=== PATIENT | female | born 1985 | race Caucasian/White ===

== ENCOUNTER 2018-04-16 21:52 | Inpatient (IN) | payer MEDICAID, OTHER ==
[~2018-04-16] VITALS: Ht 160 cm; Wt 131.6 kg
--- OUTSIDE RECORDS SUMMARY | 2018-04-16 21:59 | XMS REPORT | CCD ---
Author Author RUI PALMER Organization Unknown Address [address] [facility] [address] [place], [place] [address] Care Team Providers Care Patient Access Specialist Name Role Phone BENITO MOELLER, GALILEA Ashley GALILEA OLIVER MD Vital Signs Unknown or Not Available. Allergies Allergy Code Allergy Type Reaction Status Unknown Code - 0 0 Propensity to adverse reactions Active CODEINE 2670 Drug allergy Active Procedures Procedure Code Procedure Type Date TROPONIN-I ADV 137270979 SNOMED CT 12/08/2015 COMPREHENSIVE METABOLIC PANEL 499755632 SNOMED CT 2015 CBC W/ AUTO DIFF (RFLX MAN DIFF IF IND) 4118899 SNOMED CT 12/08/2015 ^CBC W/ MANUAL DIFF 35902344 SNOMED CT 12/08/2015 History of Immunizations Immunization Code Date DTP 1985 DTP 09/14/1986 DTP 10/31/1986 DTP 01/29/1987 DTP 02/02/1991 OPV 02 1985 OPV 02 1985 OPV 09/14/1986 OPV 01/29/1987 OPV 02/02/1991 MMR 10/31/1986 MMR 03 04/29/1993 Td (adult), adsorbed 10/04/2003 Hib, unspecified formulation 17 10/01/1987 Hep B, adolescent/high risk 42 11/21/1998 Hep B, adolescent/high risk 42 01/22/1999 Hep B, adolescent/high risk infant 42 05/21/1999 Problems Problem Code Start Date Resolved Date Status [id number] 12/03/2015 Active Results COMPREHENSIVE METABOLIC PANEL - Collect Date/Time: 12/08/2015 15:50 Test Name Code Test Result Test Units Test Ref Range GLUCOSE 2345-7 89 MG/DL L=70 H=100 SODIUM 2951-2 141 MEQ/L L=135 H=148 POTASSIUM 2823-3 3.7 MEQ/L L=3.5 H=5.3 CHLORIDE 2075-0 107 MEQ/L L=96 H=110 CO2 2028-9 23 MEQ/L L=22 H=29 BUN 3094-0 7 MG/DL L=8 H=22 CREATININE 2160-0 0.7 MG/DL L=0.6 H=1.6 SGOT/AST 1920-8 21 IU/L L=10 H=40 SGPT/ALT 1742-6 17 IU/L L=8 H=54 ALK PHOS 6768-6 143 IU/L L=35 H=115 TOTAL PROTEIN 2885-2 6.0 G/DL L=5.5 H=8.5 ALBUMIN 1751-7 3.1 G/DL L=3.1 H=5.4 TOTAL BILI 1975-2 0.2 MG/DL L=0.0 H=1.5 CALCIUM 39676-3 8.6 MG/DL L=8.2 H=10.6 AGE 30 yrs GFR NonAA 98 GFR AA 119 eGFR >60 N/A eGFR AA* >60 N/A CBC W/ AUTO DIFF (RFLX MAN DIFF IF IND) - Collect Date/Time: 12/08/2015 15:50 Test Name Code Test Result Test Units Test Ref Range WBC 18228-1 8.7 TH/CMM L=4.5 H=10.8 RBC 789-8 2.66 ML/CMM L=4.20 H=5.40 HGB 718-7 7.7 G/DL L=12.0 H=16.0 HCT 4544-3 24.8 % L=37.0 H=47.0 MCV 93 FL L=81 H=99 MCH 28.9 PG L=27.0 H=33.0 MCHC 31.0 G/DL L=31.0 H=36.0 RDW SD 54 FL L=36 H=50 RDW CV 16.0 % L=0.0 H=14.8 MPV 9.3 FL L=9.3 H=12.5 PLT 777-3 354 TH/CMM L=130 H=440 NRBC# 0.02 TH/CMM L=0.00 H=0.00 NRBC% 0.2 /100WBC L=0.0 H=2.0 %NEUT 62.6 % %LYMP 25.8 % %MONO 4.9 % %EOS 2.8 % %BASO 0.1 % #NEUT 5.46 TH/CMM L=2.10 H=8.20 #LYMP 2.25 TH/CMM L=0.90 H=5.20 #MONO 0.43 TH/CMM L=0.16 H=1.00 #EOS 0.24 TH/CMM L=0.00 H=0.80 #BASO 0.01 TH/CMM L=0.00 H=0.20 SEGS 64 % BANDS 3 % LYMPHS 28 % MONOS 1 % EOS 4 % MANUAL DIFF SEE BELOW N/A MACRO 1+ N/A HYPO 1+ N/A POLYCHROMASIA 1+ N/A TROPONIN-I ADV - Collect Date/Time: 12/08/2015 15:50 Test Name Code Test Result Test Units Test [place] [address]-5 <0.04 ng/mL L=0.04 H= 0.40 Active Medications Medication Code Dose Units Frequency Route Modification Start Date/Time Albuterol 0.09MG/Actuation Inhalation Aerosol Powder 058928 1-2 PUFF NEEDED EVERY 4 HR INHALATION 2015 13:14 Prescription Detail 1-2 PUFF INHALATION NEEDED EVERY 4 HR Claritin 24HR 10MG Oral Tablet 720059 10 MILLIGRAMS DAILY ORAL 12/05/2015 13:14 Prescription Detail 10 MILLIGRAMS ORAL DAILY Oral Tablet 0538619 1 EACH DAILY ORAL 12/05/2015 13:14 Prescription Detail 1 EACH ORAL DAILY Tylenol Extra Strength 500MG Oral Tablet 55158717489 500 MILLIGRAMS NEEDED ORAL 12/05/2015 13:14 Prescription Detail 500 MILLIGRAMS ORAL NEEDED HYDROcodone bitartrate-acetaminophen 7.5MG-325MG Oral Tablet 022765 1 TABLET NEEDED EVERY 8 HR BY MOUTH 12/05/2015 08:27 Prescription Detail 1 TABLET BY MOUTH NEEDED EVERY 8 HR Ferrous Sulfate 325MG Oral Tablet 832691 325 MILLIGRAMS BEFORE TWO MEALS BY MOUTH 12/05/2015 08:26 Prescription Detail 325 MILLIGRAMS BY MOUTH BEFORE TWO MEALS Ibuprofen 800MG Oral Tablet 428831 800 MILLIGRAMS NEEDED EVERY 8 HR BY MOUTH 12/05/2015 08:26 Prescription Detail 800 MILLIGRAMS BY MOUTH NEEDED EVERY 8 HR Medications Administered During Visit Unknown or Not Available. Encounters Encounter Diagnosis Diagnosis Code Start Date Anemia during the puerperium 425580959 12/08/2015 Social History Smoking Status Code Start Date End Date Former smoker 5360365 Patient Decision Aids Unknown or Not Available. Discharge Instructions You were admitted to [facility] on 12/08/2015 14:43 with a principal diagnosis of Anemia of the puerperium You had the following tests done: CBC W/ AUTO DIFF (RFLX MAN DIFF IF IND) COMPREHENSIVE METABOLIC PANEL TROPONIN-I ADV You were discharged from [facility] on 12/08/2015 17:13 Should you have any questions prior to discharge, please contact a member of your healthcare team. If you have left the hospital and have any questions, please contact your primary care physician. Chief Complaint and Reason For Visit Chief Complaint Date of Onset BLURRED VISION TIGHTNESS OF CHEST DIZZINESS Function Status Unknown or Not Available. Plan of Care Unknown or Not Available. Referral/Transition of Care Unknown or Not Available.
--- OUTSIDE RECORDS SUMMARY | 2018-04-16 21:59 | XMS REPORT | Continuity of Care Document ---
Author Author [facility] Organization [facility] Address [facility] [address] [address] Phone Unavailable Support Name Relationship Address Phone CHELA ALCOCER MD Caregiver [address] [place] [address] Unavailable YOLY CHAIDEZ Next Of Kin [address] [id number] Insurance Providers Payer Name Policy Number Subscriber Name Relationship [place] Other [id number] Ethan Clay A 18 Self / Same As Patient Advance Directives Directive Response Recorded Date/Time Do you have an Advanced Directive? No 08/15/03 11:06am Advance Directives No 01/15/14 10:24am Living Will No 01/15/14 10:24am Health Care Proxy No 05/02/15 7:12am Power of Anesthesia Director for Health Care No 01/15/14 10:24am Organ, Tissue, or Eye Donor No 01/15/14 10:24am Do you have a signed organ donor card? No 08/15/03 11:06am Chief Complaint and Reason for Visit Chief Complaint PROBLEM Reason for Visit [id number] Problems Active Problems Medical Problem Onset Date Status Ankle Sprain Unknown Acute Costochondritis Unknown Acute Nausea Unknown Acute Unknown Acute Rectal bleed Unknown Acute Threatened miscarriage Unknown Acute Medications Current Home Medications Medication Dose Units Route Directions Days/Qty Instructions Start Date Albuterol (Ventolin 17GM Hfa Inhaler*) 1 Puff 2 Puff Inhalation As Needed INHALE 2 PUFFS 03/17/14 Prenat Multivit/[place]/Iron/Folic Ac 1 Each 1 Udtab Oral Daily for 05/02/15 Acetaminophen/Hydrocodone Bitart (Lortab 7.5-325 Tab*) 1 Tab 1 Each Oral Every 6 Hrs As Needed For Pain for Pain 15 05/02/15 Past Home Medications Medication Directions Ordered Status Albuterol (Ventolin 17GM Hfa Inhaler*) 1 Puff Inh, 2 Puff Inhalation As Needed 09/08/13 Discontinued Metformin Hcl 500 Mg Tablet, 500 Mg Oral Twice A Day 09/08/13 Discontinued Gabapentin 300 Mg Capsule, 300 Mg Oral Three Times A Day 09/08/13 Discontinued Loratadine 10 Mg Capsule, 10 Mg Oral Daily 09/08/13 Discontinued Lurasidone Hcl 40 Mg Tablet, 40 Mg Oral Bedtime 09/08/13 Discontinued Naproxen 500 Mg Tablet, 500 Mg Oral Four Times Daily 09/08/13 Discontinued Indomethacin 50 Mg Capsule, 50 Mg Oral Twice A Day 12/23/13 Discontinued Omeprazole 20 Mg Capsule.dr, 20 Mg Oral Daily 12/23/13 Discontinued Tramadol Hcl 50 Mg Tablet, 50 Mg Oral Every 4-6 Hrs As Needed Pain 12/23/13 Discontinued Ibuprofen (Motrin 200 Mg Tab*) 200 Mg Tablet, 200 Mg Oral Every 4-6 Hours 08/19 Discontinued Oxycodone Hcl/Acetaminophen* 1 Tab Tablet, 1 Ea Oral Every 4-6 Hrs As Needed Pain 01/15/14 Discontinued Esomeprazole 20 Mg Cap 20 Mg Capsule.dr, 20 Mg Oral Daily 01/15/14 Discontinued Lurasidone Hcl 40 Mg Tablet, 40 Mg Oral Daily 01/15/14 Discontinued Oxycodone Hcl/Acetaminophen 1 Tab Tablet, 1-2 Tab Oral Every 6 Hrs As Needed For Pain 01/17/14 Discontinued Docusate Sodium 100 Mg Capsule, 100 Mg Oral Twice A Day 01/17/14 Discontinued Loratadine 10 Mg Tablet, 10 Mg Oral Daily 03/17/14 Discontinued [Unk. Antidepressant] , 1 Cap Oral Daily 03/17/14 Discontinued Omeprazole 20 Mg Capsule.dr, 20 Mg Oral Daily 03/17/14 Discontinued Acetaminophen/Hydrocodone Bitart (Lortab 5-325*) 1 Tab Tablet, 1 Each Oral Every 6 Hrs As Needed For Pain 03/31/14 Discontinued Oxycodone Hcl 5 Mg Tablet, 5 Mg Oral 01/15/15 Discontinued Ondansetron* 4 Mg/Tab Tab.rapdis, 4 Mg Oral Four Times Daily As Needed for Nausea 04/06/15 Discontinued Social History Social History Problem Response Recorded Date/Time Smoking Status Former smoker 01/15/2014 10:24am Tobacco Use Denies Use 05/02/2015 7:46am Alcohol Use none 05/02/2015 7:46am Sexual History Heterosexual 10/01/2012 11:37pm Query Response Start Date Stop Date Smoking Status Former smoker Hospital Discharge Instructions No hospital discharge instructions. Plan of Care Discharge Date 05/02/15 9:16am Disposition 01 HOME, RESIDENTIAL,ASSISTED LIVING Condition at Discharge Stable Instructions/Education Provided Threatened Miscarriage (ED) Prescriptions See Medication Section Additional Instructions/Education follow up with Dr. Jane your OBGYN in 1-2 days for further management Functional Status No functional status results. Allergies, Adverse Reactions, Alerts Allergen Type Severity Reaction Status Last Updated Codeine Allergy Unknown Active 03/31/14 SEASONAL ALLERGIES Allergy Unknown Active 03/31/14 PAPER TAPE Allergy Unknown Active 01/15/14 Immunizations Name Given Type Hx Diphtheria, Pertussis, Tetanus Vaccination Up To Date Historical Hx Influenza Vaccination No Historical Hx Pneumococcal Vaccination No Historical Hx Tetanus Toxoid Vaccination Yes Historical Vital Signs Acute Vital Signs Vital Response Date/Time Temperature (Fahrenheit) 98.1 degrees F (97.6 - 99.5) 04/06/2015 1:58pm Temperature Source Temporal Artery 04/06/2015 1:58pm Pulse Rate (adult) 98 bpm (60 - 90) 04/06/2015 2:40pm Respiratory Rate 22 bpm (12 - 24) 04/06/2015 2:40pm Blood Pressure 117/68 mm Hg 04/06/2015 2:40pm O2 Sat by Pulse Oximetry 99 % (90 - 100) 04/06/2015 2:40pm Oxygen Delivery Method 04/06/2015 2:40pm Pain Intensity 4 02/19/2015 5:37pm Pain Location Body Site Modifier 02/26/2015 2:35pm Results Pending Laboratory Results Test Name Collection Date/Time Procedures Procedure Status Date Provider(s) Complete ultrasound of gravid uterus less than 14 weeks Active 04/12/15 RONY JANE D.O. Transvaginal obstetrical ultrasound Active 04/12/15 RONY JANE D.O. Encounters Encounter Location Arrival/Admit Date Discharge/Depart Date Attending Provider Departed Emergency Room [place] 05/02/15 7:13am 05/02/15 9:16am CHELA ALCOCER MD Registered Clinic [place] 04/12/15 2:09pm RONY JANE D.O. Registered Clinic [place] 04/10/15 3:11pm JANE, RONY D.O. Departed Emergency Room [place] 04/06/15 1:47pm 04/06/15 2:43pm EUN BARRAGAN MD Discharged Recurring [place] 02/19/15 3:48pm 02/26/15 3:43pm Jesse Shaikh MD Recent Diagnosis
--- OUTSIDE RECORDS SUMMARY | 2018-04-16 21:59 | XMS REPORT | CCD ---
Author Author FIFI OROZCO Organization Unknown Address [address] [facility] [address] [place], [place] [address] Care Team Providers Care Featheredge Machine Operator Name Role Phone MYA URBINA MD Attphys Vital Signs Vital Sign Value Unit Date/Time Recent/Initial? Weight Measured 260 lbs 12/03/2015 05:23 Initial VS Height 64 in 12/03/2015 05:23 Initial VS BMI (Body Mass Index) 44.63 kg/m^2 12/03/2015 05:23 Initial VS BSA (Body Surface Area) 2.31 m^2 12/03/2015 05:23 Initial VS BP Systolic 114 mmHg 12/03/2015 05:23 Initial VS BP Diastolic 85 mmHg 12/03/2015 05:23 Initial VS Respiratory Rate 20 bpm 12/03/2015 05:23 Initial VS Heart Rate 96 bpm 12/03/2015 05:23 Initial VS Body Temperature 97.4 degrees 12/03/2015 05:23 Initial VS O2 % BldC Oximetry 98 % 12/03/2015 23:31 Initial VS BP Systolic 128 mmHg 12/05/2015 09:44 Most Recent VS BP Diastolic 87 mmHg 12/05/2015 09:44 Most Recent VS Respiratory Rate 18 bpm 12/05/2015 09:44 Most Recent VS Heart Rate 103 bpm 12/05/2015 09:44 Most Recent VS O2 % BldC Oximetry 100 % 12/05/2015 09:44 Most Recent VS Body Temperature 98.4 degrees 12/05/2015 09:44 Most Recent VS Allergies Allergy Code Allergy Type Reaction Status Unknown Code - 0 0 Propensity to adverse reactions Active CODEINE 2670 Drug allergy Active Procedures Procedure Code Procedure Type Date Delivery of Products of Conception, External Approach [id number] ICD -10 PCS 12/04/2015 Repair Perineum Muscle, Open Approach [id number] ICD-10 PCS 12/04/2015 Division of Female Perineum, External Approach [id number] ICD-10 PCS 12/03/2015 Introduction of Other Hormone into Peripheral Vein, Percutaneous Approach [id number] ICD-10 PCS 12/03/[address] 12/04/2015 ^CBC W/AUTO DIFF 8421534 SNOMED CT 11/27/2015 TYPE AND SCREEN 99503468 SNOMED CT 11/27/2015 CBC W/ AUTO DIFF (RFLX MAN DIFF IF IND) 5604272 SNOMED CT 11/27/2015 History of Immunizations Immunization Code Date DTP 1985 DTP 09/14/1986 DTP 10/31/1986 DTP 01/29/1987 DTP 02/02/1991 OPV 02 1985 OPV 1985 OPV 02 09/14/1986 OPV 02 01/29/1987 OPV 02 02/02/1991 MMR 03 10/31/1986 MMR 03 04/29/1993 Td (adult), adsorbed 09 10/04/2003 Hib, unspecified formulation 17 10/01/1987 Hep B, adolescent/high risk 42 11/21/1998 Hep B, adolescent/high risk 42 01/22/1999 Hep B, adolescent/high risk infant 42 05/21/1999 Problems Problem Code Start Date Resolved Date Status [id number] 12/03/2015 Active Results CBC W/ AUTO DIFF (RFLX MAN DIFF IF IND) - Collect Date/Time: 12/03/2015 05:40 Test Name Code Test Result Test Units Test Ref Range WBC 77270-5 9.8 TH/CMM L=4.5 H=10.8 RBC 789-8 3.85 ML/CMM L=4.20 H=5.40 HGB 718-7 11.0 G/DL L=12.0 H=16.0 HCT 4544-3 34.6 % L=37.0 H=47.0 MCV 90 FL L=81 H=99 MCH 28.6 PG L=27.0 H=33.0 MCHC 31.8 G/DL L=31.0 H=36.0 RDW SD 50 FL L=36 H=50 RDW CV 15.2 % L=0.0 H=14.8 MPV 10.8 FL L=9.3 H=12.5 PLT 777-3 255 TH/CMM L=130 H=440 NRBC# 0.00 TH/CMM L=0.00 H=0.00 NRBC% 0.0 /100WBC L=0.0 H=2.0 %NEUT 73.3 % %LYMP 19.8 % %MONO 5.6 % %EOS 0.7 % %BASO 0.0 % #NEUT 7.15 TH/CMM L=2.10 H=8.20 #LYMP 1.93 TH/CMM L=0.90 H=5.20 #MONO 0.55 TH/CMM L=0.16 H=1.00 #EOS 0.07 TH/CMM L=0.00 H=0.80 #BASO 0.00 TH/CMM L=0.00 H=0.20 MANUAL DIFF NOT IND N/A HEMOGRAM - Collect Date/Time: 12/04/2015 06:15 Test Name Code Test Result Test Units Test Ref Range WBC 68236-8 16.4 TH/CMM L=4.5 H=10.8 RBC 789-8 2.82 ML/CMM L=4.20 H=5.40 HGB 718-7 8.1 G/DL L=12.0 H=16.0 HCT 4544-3 25.6 % L=37.0 H=47.0 MCV 91 FL L=81 H=99 MCH 28.7 PG L=27.0 H=33.0 MCHC 31.6 G/DL L=31.0 H=36.0 RDW SD 51 FL L=36 H=50 RDW CV 15.4 % L=0.0 H=14.8 MPV 11.2 FL L=9.3 H=12.5 PLT 777-3 219 TH/CMM L=130 H=440 NRBC# 0.00 TH/CMM L=0.00 H=0.00 NRBC% 0.0 /100WBC L=0.0 H=2.0 TYPE AND SCREEN - Collect Date/Time: 12/03/2015 05:40 Test Name Code Test Result Test Units Test Ref Range ABO/Rh Type A Positive N/A Antibody Screen-Gel Negative N/A Active Medications Medication Code Dose Units Frequency Route Modification Start Date/Time Albuterol 0.09MG/Actuation Inhalation Aerosol Powder 94814796408 1-2 PUFF NEEDED EVERY 4 HR INHALATION 13:14 Prescription Detail 1-2 PUFF INHALATION NEEDED EVERY 4 HR Claritin 24HR 10MG Oral Tablet 728146 10 MILLIGRAMS DAILY ORAL 12/05/2015 13:14 Prescription Detail 10 MILLIGRAMS ORAL DAILY Oral Tablet 3098449 1 EACH DAILY ORAL 12/05/2015 13:14 Prescription Detail 1 EACH ORAL DAILY Tylenol Extra Strength 500MG Oral Tablet 43453920971 500 MILLIGRAMS NEEDED ORAL 12/05/2015 13:14 Prescription Detail 500 MILLIGRAMS ORAL NEEDED HYDROcodone bitartrate-acetaminophen 7.5MG-325MG Oral Tablet 801598 1 TABLET NEEDED EVERY 8 HR BY MOUTH 12/05/2015 08:27 Prescription Detail 1 TABLET BY MOUTH NEEDED EVERY 8 HR Ferrous Sulfate 325MG Oral Tablet 767209 325 MILLIGRAMS BEFORE TWO MEALS BY MOUTH 12/05/2015 08:26 Prescription Detail 325 MILLIGRAMS BY MOUTH BEFORE TWO MEALS Ibuprofen 800MG Oral Tablet 019553 800 MILLIGRAMS NEEDED EVERY 8 HR BY MOUTH 12/05/2015 08:26 Prescription Detail 800 MILLIGRAMS BY MOUTH NEEDED EVERY 8 HR Medications Administered During Visit Medication Dose Units Frequency Route Date/ Time of Last Dose IBUPROFEN (MOTRIN) TAB:800 MG 800 MG Q8H PO 12/05/2015 05:21 FERROUS SULFATE 325MG TABLET 325 MG ACBID PO 12/05/2015 08:46 NORCO [HYDROCODONE-APAP] TAB 7.5/325MG 1 TAB PRN PO 12/05/2015 08:46 Encounters Encounter Diagnosis Diagnosis Code Start Date Obesity complicating , third trimester [id number] 2015 Social History Smoking Status Code Start Date End Date Former smoker 6646175 Patient Decision Aids Patient Decision Aid PATIENT PORTAL ACCESS Discharge Instructions You were admitted to [facility] on 12/03/2015 04:46 with a principal diagnosis of Obesity complicating , third trimester You had the following procedures done: Delivery of Products of Conception, External Approach Repair Perineum Muscle, Open Approach Division of Female Perineum, External Approach Introduction of Other Hormone into Peripheral Vein, Percutaneous Approach You had the following tests done: CBC W/ AUTO DIFF (RFLX MAN DIFF IF IND) HEMOGRAM TYPE AND SCREEN You were discharged from [facility] on 12/05/2015 14:25 Should you have any questions prior to discharge, please contact a member of your healthcare team. If you have left the hospital and have any questions, please contact your primary care physician. DIET: REGULAR, Drink plenty of fluids, As tolerated, Increase fiber, Avoid alcohol Avoid caffeinated beverages, Eat high iron foods: grn vegs, red meats. HOME MEDICATION INSTRUCTIONS: Continue taking your vitamins. NON- Apply firm fitting bra OTF, Avoid stim breasts to supress milk prod. Apply ice packs if breasts engorged. ACTIVITIES: Refrain from smoking, Rest as possible. Limit walking,standing & stair climbing, No heavy lifting. HYGIENE: May shower, Use adriana-bottle with Betasept:. after each urine and BM until flow stops. Change pads with each urination or BM. BOWEL MOVEMENTS Stool softeners as needed, Avoid constipation. May take senokot, Milk of Magnesia. CONTROL DISCUSS AT YOUR 6 WEEK PP VISIT SEXUAL ACTIVITY Refrain from intercourse until pp exam. EXERCISES-VAGINAL DELIVERY May resume in 1-2 weeks, Start slowly and increase. [id number] Abdominal exercises in 3-4 wks , Start slowly and increase as roland. Post blues; Hormonal changes You may have emotional changes, You may be tearful. This shouldn't last more than 2-3 wks, Call physician if you are concerned. NOTIFY PHYSICIAN OF: Chills, fever, painful urination, foul- smelling vaginal discharge. bleeding more than a period, temperature is greater than 100.4. dizziness or fainting, Painful breasts, Red, hot and extremely HARD breasts. redness or drainage from incision, unrelieved pain with medication. nausea or vomiting, cough or shortness of breath. cramping or swelling of legs. RELEVANT CONTACT INFORMATION: Dr. Mya Urbina: [phone]. FOLLOW-UP: Make appt to see __CIARA in 6wks. Call office for an appointment. [phone] TREATMENTS: stool softeners and hemmorrhoid cream. SPECIAL INSTRUCTIONS: is not recommended for 3 mnths. do not kiss/nuzzle NB til lesions clear. PATIENT PORTAL EDUCATION INFO PROVIDED? YES, patient verbalized understanding. PATIENT PORTAL DEMONSTRATION PERFORMED? YES, patient verbalized understanding. DISCHARGED TO: Home. MODE OF TRANSPORTATION: Ambulatory. ACCOMPANIED BY: . PAIN MANAGEMENT Non drug pain control methods, When to contact physician. PERSONAL EFFECTS/VALUABLES SENT HOME: Yes. IMPORTANT: INSURE YOUR BABY! Provided info on need to insure baby!. PATIENT/FAMILY UNDERSTANDS INSTRUCTIONS: Verbalizes. INSTRUCTIONS GIVEN BY (TYPE IN NAME AND DATE) CHRIS ÁLVAREZ SMOKING CESSATION: Smoking and second hand smoke is harmful, to your health. Smoking has been linked to cancer, cardiac disease, COPD, and asthma. For more information you can call:, 4-652-POW-STOP, or 4-228-[email or web address]. A pamphlet on smoking was given to you, at admission. Chief Complaint and Reason For Visit Chief Complaint Date of Onset INDUCTION Function Status Unknown or Not Available. Plan of Care Unknown or Not Available. Referral/Transition of Care Unknown or Not Available.
--- OUTSIDE RECORDS SUMMARY | 2018-04-16 21:59 | XMS REPORT | Continuity of Care Document ---
Author Author [facility] Organization [facility] Address [facility] [address] [place] [address] Phone Unavailable Support Name Relationship Address Phone EUN BARRAGAN MD Caregiver [address] [place] [address] Unavailable YOLY CHAIDEZ Next Of Kin [address] [address] Insurance Providers Payer Name Policy Number Subscriber Name Relationship [employer] [facility] [id number] Ethan Clay 18 Self / Same As Patient Advance Directives Directive Response Recorded Date/Time Do you have an Advanced Directive? No 08/15/03 11:06am Advance Directives No 01/15/14 10:24am Living Will No 01/15/14 10:24am Health Care Proxy No 04/06/15 1:46pm Power of Head Start Director for Health Care No 01/15/14 10:24am Organ, Tissue, or Eye Donor No 01/15/14 10:24am Do you have a signed organ donor card? No 08/15/03 11:06am Chief Complaint and Reason for Visit Chief Complaint NAUSEA Reason for Visit Nausea Problems Active Problems Medical Problem Onset Date Status Ankle Sprain Unknown Acute Costochondritis Unknown Acute Nausea Unknown Acute Unknown Acute Rectal bleed Unknown Acute Medications Current Home Medications Medication Dose Units Route Directions Days/Qty Instructions Start Date Loratadine 10 Mg 10 Mg Oral Daily 03/17/14 Albuterol (Ventolin 17GM Hfa Inhaler*) 1 Puff 2 Puff Inhalation As Needed INHALE 2 PUFFS 03/17/14 [Unk. Antidepressant] 1 Cap Oral Daily 03/17/14 Oxycodone Hcl 5 Mg 5 Mg Oral 01/15/15 Ondansetron* 4 Mg/Tab 4 Mg Oral Four Times Daily As Needed for Nausea 20 04/06/15 Past Home Medications Medication Directions Ordered Status [...] A Day 12/23/13 Discontinued Omeprazole 20 Mg Capsule., 20 Mg Oral Daily 12/23/13 Discontinued Tramadol Hcl 50 Mg Tablet, 50 Mg Oral Every 4-6 Hrs As Needed Pain 12/23/13 Discontinued Ibuprofen (Motrin 200 Mg Tab*) 200 Mg Tablet, 200 Mg Oral Every 4-6 Hours 08/19 Discontinued Oxycodone Hcl/Acetaminophen* 1 Tab Tablet, 1 Ea Oral Every 4-6 Hrs As Needed Pain 01/15/14 Discontinued Esomeprazole 20 Mg Cap 20 Mg Capsule., 20 Mg Oral Daily 01/15/14 Discontinued Lurasidone Hcl 40 Mg Tablet, 40 Mg Oral Daily 01/15/14 Discontinued Oxycodone Hcl/Acetaminophen 1 Tab Tablet, 1-2 Tab Oral Every 6 Hrs As Needed For Pain 01/17/14 Discontinued Docusate Sodium 100 Mg Capsule, 100 Mg Oral Twice A Day 01/17/14 Discontinued Omeprazole 20 Mg Capsule., 20 Mg Oral Daily 03/17/14 Discontinued Acetaminophen/Hydrocodone Bitart (Lortab 5-325*) 1 Tab Tablet, 1 Each Oral Every 6 Hrs As Needed For Pain 03/31/14 Discontinued Social History Social History Problem Response Recorded Date/Time Smoking Status Former smoker 01/15/2014 10:24am Alcohol Use none 04/06/2015 2:38pm Sexual History Heterosexual 10/01/2012 11:37pm Query Response Start Date Stop Date Smoking Status Former smoker Hospital Discharge Instructions No hospital discharge instructions. Plan of Care Discharge Date 04/06/15 2:43pm Condition at Discharge Stable Instructions/Education Provided Vitamins (By mouth) Prescriptions See Medication Section Referrals RONY JANE D.O. - Additional Instructions/Education Return to ER if needed, for problems or worsening symptoms Call [facility] to start your care, with Dr. Jane You should start taking one vitamin daily. Functional Status Query Response Date Recorded Patient Behavior Cooperative Appropriate April 06, 2015 2:00pm Allergies, Adverse Reactions, Alerts Allergen Type Severity [...] Pain Location Body Site Modifier 02/26/2015 2:35pm Pain Description Throbbing 01/15/2015 3:57pm Pain Duration 15-30 Minutes 01/15/2015 1:31pm Height 5 ft 4 in Weight 250 lb Body Mass Index 42.0 kg/m^2 Results Pending Laboratory Results Test Name Collection Date/Time Procedures No known history of procedures. Encounters Encounter Location Arrival/Admit Date Discharge/Depart Date Attending Provider Departed Emergency Room [place] 04/06/15 1:47pm 04/06/15 2:43pm EUN BARRAGAN MD Registered Recurring [place] 02/19/15 3:48pm Jesse Shaikh MD Departed Emergency Room [place] 01/15/15 12:40pm 01/15/15 3:57pm YU ALDANA DO Recent Diagnosis
--- OUTSIDE RECORDS SUMMARY | 2018-04-16 21:59 | XMS REPORT | CCD ---
Author Author [facility] Unknown Address [address] [facility] [address] [place] [address] Care Team Providers Care Rotary Engine Assembler Name Role Phone PETERSON PÉREZ DO Bette Attphys Allergies Allergy Code Allergy Type Reaction Status Unknown Code - 0 0 Propensity to adverse reactions Active CODEINE 8428 Drug allergy Active Active Medications Unknown or Not Available. Problems Problem Code Start Date Resolved Date Status [id number] 12/03/2015 Active Procedures Procedure Code Procedure Type Date Excision of ganglion, wrist; recurrent 81830 CPT 2016 PATHOLOGY ORDER [id number] SNOMED CT 01/14/2017 TEST URINE [id number] SNOMED CT 01/14/2017 Results TEST URINE - Collect Date/Time: 01/14/2017 06:40 Test Name Code Test Result Test Units Test Ref Range TEST UR 2106-3 NEGATIVE N/A Function Status Unknown or Not Available. History of Immunizations Immunization Code Date DTP 1985 DTP 01 09/14/1986 DTP 01 10/31/1986 DTP 01 01/29/1987 DTP 01 02/02/1991 OPV 02 1985 OPV 02 1985 OPV 02 09/14/1986 OPV 02 01/29/1987 OPV 02 02/02/1991 MMR 03 10/31/1986 MMR 03 04/29/1993 Td (adult), adsorbed 09 10/04/2003 Hib, unspecified formulation 17 10/01/1987 Hep B, adolescent/high risk 42 11/21/1998 Hep B, adolescent/high risk 42 01/22/1999 Hep B, adolescent/high risk 42 05/21/1999 Plan of Treatment Unknown or Not Available. Social History Smoking Status Code Start Date End Date Former smoker [id number] Vital Signs Vital Sign Value Unit Date/Time Recent/Initial? BMI (Body Mass Index) 46.34 kg/m2 01/13/2017 11:33 Initial VS Weight Measured 270 [lb_av] 01/13/2017 11:33 Initial VS Height 64 [in_i] 01/13/2017 11:33 Initial VS BSA (Body Surface Area) 2.35 m2 01/13/2017 11:33 Initial VS Function Status Unknown or Not Available. Goals Unknown or Not Available. ASSESSMENTS Unknown or Not Available. Health Concerns Section Unknown or Not Available.
--- OUTSIDE RECORDS SUMMARY | 2018-04-16 21:59 | XMS REPORT | CCD ---
Author [facility] Organization Unknown Address [address] [facility] [address] [place], [place] [id number] Care Team Providers Care Nutrition Helper Name Role Phone HOPE RAMIREZ DO Attphys RAMIREZHOPE DO Prisurg Vital Signs Unknown or Not Available. Allergies Allergy Code Allergy Type Reaction Status Unknown Code - 0 0 Propensity to adverse reactions Active CODEINE 1577 Drug allergy Active Procedures Unknown or Not Available. History of Immunizations Immunization Code Date DTP 1985 DTP 09/14/1986 DTP 10/31/1986 DTP 01/29/1987 DTP 02/02/1991 OPV 02 1985 OPV 1985 OPV 02 09/14/1986 OPV 01/29/1987 OPV 02 02/02/1991 MMR 03 10/31/1986 MMR 03 04/29/1993 Td (adult), adsorbed 09 10/04/2003 Hib, unspecified formulation 17 10/01/1987 Hep B, adolescent/high risk infant 42 11/21/1998 Hep B, adolescent/high risk 42 01/22/1999 Hep B, adolescent/high risk infant 42 05/21/1999 Problems Unknown or Not Available. Results Unknown or Not Available. Active Medications Unknown or Not Available. Medications Administered During Visit Unknown or Not Available. Encounters Encounter Diagnosis Diagnosis Code Start Date HEADACHE 7840 05/18/2015 Social History Smoking Status Code Start Date End Date Former smoker [id number] Patient Decision Aids Unknown or Not Available. Discharge Instructions You were admitted to [facility] on 05/18/2015 with a principal diagnosis of HEADACHE. You were discharged from [facility] on 05/18/2015. Should you have any questions prior to discharge, please contact a member of your healthcare team. If you have left the hospital and have any questions, please contact your primary care physician. Chief Complaint and Reason For Visit Chief Complaint Date of Onset HEADACHE Function Status Unknown or Not Available. Plan of Care Unknown or Not Available. Referral/Transition of Care Unknown or Not Available.
--- OUTSIDE RECORDS SUMMARY | 2018-04-16 22:00 | XMS REPORT | Continuity of Care Document ---
Author Author [facility] Organization [facility] Address [facility] [address] [place] [address] Phone Unavailable Support Name Relationship Address Phone NIRMALA JURADO D.O. Caregiver [address] [place], [place] [address] YOLY CHAIDEZ Next Of Kin [address] [place] [address] Insurance Providers Payer Name Policy Number Subscriber Name Relationship [employer] [id number] Ethan Chaidez 18 Self / Same As Patient Advance Directives Directive Response Recorded Date/Time Do you have an Advanced Directive? No 08/15/03 11:06am Advance Directives No 07/24/15 3:59pm Living Will No 07/24/15 3:59pm Health Care Proxy No 09/28/15 3:13pm Power of Urban Redevelopment Specialist for Health Care No 07/24/15 3:59pm Organ, Tissue, or Eye Donor No 07/24/15 3:59pm Do you have a signed organ donor card? No 07/24/15 3:59pm Problems Active Problems Medical Problem Onset Date Status Ankle Sprain Unknown Acute Costochondritis Unknown Acute Nausea Unknown Acute Unknown Acute Rectal bleed Unknown Acute Threatened miscarriage Unknown Acute Medications Current Home Medications Medication Dose Units Route Directions Days/Qty Instructions Start Date Albuterol (Ventolin 17GM Hfa Inhaler*) 1 Puff 2 Puff Inhalation As Needed INHALE 2 PUFFS 03/17/14 Prenat Multivit/[place]/Iron/Folic Ac 1 Each 1 Udtab Oral Daily for 05/02/15 Past Home Medications Medication Directions Ordered [...] Daily As Needed for Nausea 04/06/15 Discontinued Acetaminophen/Hydrocodone Bitart (Lortab 7.5-325 Tab*) 1 Tab Tablet, 1 Each Oral Every 6 Hrs As Needed For Pain for Pain 05/02/15 Discontinued Social History Social History Problem Response Recorded Date/Time Smoking Status Former smoker 01/15/2014 10:24am Tobacco Use Denies Use 05/02/2015 7:46am Sexual History Heterosexual 10/01/2012 11:37pm Query Response Start Date Stop Date Smoking Status Former smoker Hospital Discharge Instructions No hospital discharge instructions. Plan of Care Discharge Date 09/28/15 6:40pm Prescriptions See Medication Section Functional Status No functional status results. Allergies, Adverse Reactions, Alerts Allergen Type Severity Reaction Status Last Updated Codeine Allergy Unknown Active 09/11/15 SEASONAL ALLERGIES Allergy Unknown Active 09/11/15 PAPER TAPE Allergy Unknown Active 01/15/14 Immunizations Name Given Type Hx Diphtheria, Pertussis, Tetanus Vaccination 2012 Historical Hx Influenza Vaccination No Historical Hx Pneumococcal Vaccination No Historical Hx Tetanus Toxoid Vaccination Yes Historical Vital Signs Acute Vital Signs Vital Response Date/Time Temperature (Fahrenheit) 98.4 degrees F (97.6 - 99.5) 09/28/2015 3:59pm Temperature Source Temporal Artery 09/28/2015 3:59pm Pulse Rate (adult) 96 bpm (60 - 90) 09/28/2015 3:59pm Respiratory Rate 20 bpm (12 - 24) 09/28/2015 3:59pm Blood Pressure 126/62 mm Hg 09/28/2015 3:59pm Height 5 ft 4 in Weight 258 lb Body Mass Index 44.3 kg/m^2 Results Laboratory Results Test Name Result Units Flags Reference Collection Date/Time Result Date/ Time Comments White Blood Count 6.8 K/uL 4.8-10.8 07/05/2015 8:39am 07/05/2015 9: 25am Red Blood Count 3.95 M/uL L 4.20-5.40 07/05/2015 8:39am 07/05/2015 9: 25am Hemoglobin 12.0 gm/dL 12.0-16.0 07/05/2015 8:39am 07/05/2015 9:25am Hematocrit 35.2 % L 37.0-47.0 07/05/2015 8:39am 07/05/2015 9:25am Mean Corpuscular Volume 89.0 fL 81.0-99.0 07/05/2015 8:39am 07/05/2015 9:25am Mean Corpuscular Hemoglobin 30.3 pg 27.0-31.0 07/05/2015 8:39am 2014 9:25am Mean Corpuscular Hemoglobin Concent 34.0 g/dL 30.0-37.0 07/05/2015 8: 39am 07/05/2015 9:25am Red Cell Distribution Width 14.3 % 11.5-14.5 07/05/2015 8:39am 2014 9:25am Platelet Count 283 K/uL 130-400 07/05/2015 8:39am 07/05/2015 9:25am Mean Platelet Volume 8.3 fL 7.4-10.4 07/05/2015 8:39am 07/05/2015 9: 25am Neutrophils (%) (Auto) 76.1 % H 42.2-75.2 07/05/2015 8:39am 07/05/2015 9 :25am Lymphocytes (%) (Auto) 19.4 % L 20.5-51.1 07/05/2015 8:39am 07/05/2015 9 :25am Monocytes (%) (Auto) 3.9 % 1.7-9.3 07/05/2015 8:39am 07/05/2015 9:25am Eosinophils (%) (Auto) 0.7 % 0-3 07/05/2015 8:39am 07/05/2015 9:25am Basophils (%) (Auto) 0.1 % 0.0-1.0 07/05/2015 8:39am 07/05/2015 9:25am Neutrophils # (Auto) 5.2 K/uL 2.0-6.9 07/05/2015 8:39am 07/05/2015 9: 25am Lymphocytes # (Auto) 1.3 K/uL 1.2-3.4 07/05/2015 8:39am 07/05/2015 9: 25am Monocytes # (Auto) 0.3 K/uL 0.1-0.6 07/05/2015 8:39am 07/05/2015 9: 25am Eosinophils # (Auto) 0.1 K/uL 0.0-0.7 07/05/2015 8:39am 07/05/2015 9: 25am Basophils # (Auto) 0.0 K/uL 0.0-0.2 07/05/2015 8:39am 07/05/2015 9: 25am Fasting Glucose 96 MG/DL 70-110 07/05/2015 8:39am 07/05/2015 10:04am NO URINE FASTING GLUCOSE RESULT; PATIENT UNABLE TO VOID AT THIS TIME. Glucose 1/2 Hour 149 MG/DL 110-170 07/05/2015 8:39am 07/05/2015 10: 45am Glucose 1 Hour 151 MG/DL 120-170 07/05/2015 8:39am 07/05/2015 11:08am Glucose 2 Hour 131 MG/DL H 70-120 07/05/2015 8:39am 07/05/2015 11:55am Glucose 3 Hour 118 MG/DL 70-120 07/05/2015 8:39am 07/05/2015 1:14pm Urine Color YELLOW YELLOW 07/05/2015 8:39am 07/05/2015 12:18pm Urine Appearance SL CLOUDY H CLEAR 07/05/2015 8:39am 07/05/2015 12: 18pm Urine Glucose (UA) NEGATIVE mg/dL NEGATIVE 07/05/2015 8:39am 2014 12:18pm Urine Bilirubin NEGATIVE NEGATIVE 07/05/2015 8:39am 07/05/2015 12: 18pm Urine Ketones NEGATIVE mg/dL NEGATIVE 07/05/2015 8:39am 07/05/2015 12: 18pm Urine Specific [place] 1.020 1.010-1.025 07/05/2015 8:39am 2014 12:18pm Urine Occult Blood NEGATIVE NEGATIVE 07/05/2015 8:39am 07/05/2015 12: 18pm Urine pH 6.0 5.0-8.0 07/05/2015 8:39am 07/05/2015 12:18pm Urine Protein NEGATIVE mg/dL NEGATIVE 07/05/2015 8:39am 07/05/2015 12: 18pm Urine Urobilinogen 0.2 mg/dL E.U./dL 0.2-1.0 07/05/2015 8:39am 2014 12:18pm Urine Nitrate NEGATIVE NEGATIVE 07/05/2015 8:39am 07/05/2015 12:18pm Urine Leukocyte Esterase TRACE H NEGATIVE 07/05/2015 8:39am 2014 12:18pm Urine RBC NEGATIVE /hpf 0 07/05/2015 8:39am 07/05/2015 12:18pm Urine WBC 5-9 /hpf H 0-4 07/05/2015 8:39am 07/05/2015 12:18pm Urine Squamous Epithelial Cells 10-12 /hpf 0-1 07/05/2015 8:39am 2014 12:18pm Urine Bacteria 2+ H NEGATIVE 07/05/2015 8:39am 07/05/2015 12:18pm Hepatitis B Surface Antigen Negative Negative 07/05/2015 8:39am 07/08 8:43am Performed at: [address] [id number] Air Valve Repairer: VERONICA Elias MD, Phone: [phone] HIV-1 Antibody <1.00 <1.00 07/05/2015 8:39am 07/08/2015 8:43am Index Value: Specimen reactivity relative to the negative cutoff. HIV 1/O/2 ABS, QUAL Non Reactive Non Reactive 07/05/2015 8:39am 07/08 8:43am Rubella IgG Antibody 6.01 index Immune >0.99 07/05/2015 8:39am 2014 8:17am Non-immune <0.90 Equivocal 0.90 - 0.99 Immune >0.99 Performed at: [address] [id number] Air Valve Repairer: VERONICA Elias MD, Phone: [phone] Pending Laboratory Results Test Name Collection Date/Time Procedures Procedure Status Date Provider(s) Follow-up obstetrical ultrasound Active 08/28/15 NIRMALA JURADO D.O. Encounters Encounter Location Arrival/Admit Date Discharge/Depart Date Attending Provider Departed [facility] 09/28/15 3:14pm 09/28/15 6:40pm NIRMALA JURADO D.O. Registered [facility] 09/11/15 11:55am NIRMALA JURADO D.O. Registered [facility] 08/28/15 1:30pm NIRMALA JURADO D.O. Registered [facility] 08/27/15 3:28pm NIRMALA JURADO D.O. Departed [facility] 07/24/15 4:48pm 07/24/15 9:14pm ANUM SOLIS M.D. Registered [facility] 07/05/15 8:18am ADRIANE URBINA
--- OUTSIDE RECORDS SUMMARY | 2018-04-16 22:00 | XMS REPORT | Continuity of Care Document ---
Author Author [facility] Organization [facility] Address [facility] [address] [place] [address] Phone Unavailable Support Name Relationship Address Phone RONY JANE D.O. Caregiver [address] [facility] [address] [place] [address] YOLY CHAIDEZ Next Of Kin [address] [address] Insurance Providers Payer Name Policy Number Subscriber Name Relationship [place] Other [id number] Ethan Clay A 18 Self / Same As Patient Advance Directives Directive Response Recorded Date/Time Do you have an Advanced Directive? No 08/15/03 11:06am Advance Directives No 01/15/14 10:24am Living Will No 01/15/14 10:24am Health Care Proxy No 04/12/15 2:03pm Power of Sustainability Manager for Health Care No 01/15/14 10:24am Organ, Tissue, or Eye Donor No 01/15/14 10:24am Do you have a signed organ donor card? No 08/15/03 11:06am Problems Active Problems Medical Problem Onset Date [...] Date/Time Smoking Status Former smoker 01/15/2014 10:24am Sexual History Heterosexual 10/01/2012 11:37pm Query Response Start Date Stop Date Smoking Status Former smoker Hospital Discharge Instructions Current inpatient/outpatient. Discharge instructions are currently unavailable. Plan of Care Prescriptions Functional Status No functional status results. Allergies, [...] Location Arrival/Admit Date Discharge/Depart Date Attending Provider Registered [facility] [place] 04/12/15 2:09pm RONY JANE D.O. Registered [facility] [place] 04/10/15 3:11pm RONY JANE D.O. Departed Emergency Room [place] 04/06/15 1:47pm 04/06/15 2:43pm EUN BARRAGAN MD Discharged Recurring [place] 02/19/15 3:48pm 02/26/15 3:43pm Jesse Shaikh MD
--- OUTSIDE RECORDS SUMMARY | 2018-04-16 22:00 | XMS REPORT | Continuity of Care Document ---
Author Author [facility] Organization [facility] Address [facility] [address] [place] [address] Phone Unavailable Support Name Relationship Address Phone ANUM SOLIS M.D. Caregiver [address] [place] [address] YOLY CHAIDEZ Next Of Kin [address] [place] [address] Insurance Providers Payer Name Policy Number Subscriber Name Relationship [employer] [facility] [id number] Ethan Clay 18 Self / Same As Patient Advance Directives Directive Response Recorded Date/Time Do you have an Advanced Directive? No 08/15/03 11:06am Advance Directives No 07/24/15 3:59pm Living Will No 07/24/15 3:59pm Health Care Proxy No 07/24/15 3:59pm Power of [place] Fisher for Health Care No 07/24/15 3:59pm Organ, [...] As Needed INHALE 2 PUFFS 03/17/14 Prenat Multivit/Banner/Iron/Folic Ac 1 Each 1 Udtab Oral Daily [...] Oral Daily 03/17/14 Discontinued Omeprazole 20 Mg Capsule., 20 Mg [...] Smoking Status Former smoker Hospital Discharge Instructions Discharge Instructions Nursing Instructions Flu Vaccine Received this Visit: No Pneumonia Vaccine Received this Visit: No Education #1 Topic: PAIN MANAGEMENT Methods: Discussion Response: Verbalize understanding Recipient: Patient, Family Note: REST, APPLY WARM PACK, AND ICE Patient specific education materials provided?: No Patient Request Electronic Discharge Instructions: No Patient Received Electronic Discharge Instructions: No Patient Health Summary printed/downloaded for the patient?: No Left Against Medical Advice: N/A Plan of Care Discharge Date 07/24/15 9:14pm Prescriptions See Medication Section Functional Status No functional status results. Allergies, Adverse Reactions, Alerts Allergen Type Severity Reaction Status Last Updated Codeine Allergy Unknown Active 03/31/14 SEASONAL ALLERGIES Allergy Unknown Active 03/31/14 PAPER TAPE Allergy Unknown Active 01/15/14 Immunizations Name Given Type Hx Diphtheria, Pertussis, Tetanus Vaccination 2013 Historical Hx Influenza Vaccination N refused Historical Hx Pneumococcal Vaccination No Historical Hx Tetanus Toxoid Vaccination Yes Historical Vital Signs Acute Vital Signs Vital Response Date/Time Temperature (Fahrenheit) 98.0 degrees F (97.6 - 99.5) 05/02/2015 9:15am Temperature Source Temporal Artery 05/02/2015 9:15am Pulse Rate (adult) 78 bpm (60 - 90) 05/02/2015 9:15am Respiratory Rate 20 bpm (12 - 24) 05/02/2015 9:15am Blood Pressure 124/73 mm Hg 05/02/2015 9:15am O2 Sat by Pulse Oximetry 99 % (90 - 100) 05/02/2015 9:15am Oxygen Delivery Method 05/02/2015 9:15am Pain Intensity 2 05/02/2015 7:18am Pain Location Body Site Modifier 05/02/2015 7:18am Pain Description 05/02/2015 7:18am Height 5 ft 4 in Weight 252 lb Body Mass Index 43.3 kg/m^2 Results Laboratory Results Test Name Result Units Flags Reference Collection Date/Time Result Date/ Time Comments White Blood Count 7.9 K/uL 4.8-10.8 05/02/2015 7:57am 05/02/2015 8: 18am Red Blood Count 4.18 M/uL L 4.20-5.40 05/02/2015 7:57am 05/02/2015 8: 18am Hemoglobin 12.6 gm/dL 12.0-16.0 05/02/2015 7:57am 05/02/2015 8:18am Hematocrit 38.1 % 37.0-47.0 05/02/2015 7:am 05/02/2015 8:18am Mean Corpuscular Volume 91.0 fL 81.0-99.0 05/02/2015 7:5705/02/2015 8:18am Mean Corpuscular Hemoglobin 30.1 pg 27.0-31.0 05/02/2015 7:572014 8:18am Mean Corpuscular Hemoglobin Concent 33.0 g/dL 30.0-37.0 05/02/2015 7: 57am 05/02/2015 8:18am Red Cell Distribution Width 14.4 % 11.5-14.5 05/02/2015 7:2014 8:18am Platelet Count 267 K/uL 130-400 05/02/2015 7:05/02/2015 8:18am Mean Platelet Volume 7.6 fL 7.4-10.4 05/02/2015 7:05/02/2015 8: 18am Neutrophils (%) (Auto) 73.4 % 42.2-75.2 05/02/2015 7:am 05/02/2015 8: 18am Lymphocytes (%) (Auto) 20.9 % 20.5-51.1 05/02/2015 7:am 05/02/2015 8: 18am Monocytes (%) (Auto) 3.8 % 1.7-9.3 05/02/2015 7:05/02/2015 8:18am Eosinophils (%) (Auto) 1.4 % 0-3 05/02/2015 7:57am 05/02/2015 8:18am Basophils (%) (Auto) 0.5 % 0.0-1.0 05/02/2015 7:05/02/2015 8:18am Neutrophils # (Auto) 5.8 K/uL 2.0-6.9 05/02/2015 7:am 05/02/2015 8: 18am Lymphocytes # (Auto) 1.7 K/uL 1.2-3.4 05/02/2015 7:57am 05/02/2015 8: 18am Monocytes # (Auto) 0.3 K/uL 0.1-0.6 05/02/2015 7:57am 05/02/2015 8: 18am Eosinophils # (Auto) 0.1 K/uL 0.0-0.7 05/02/2015 7:57am 05/02/2015 8: 18am Basophils # (Auto) 0.0 K/uL 0.0-0.2 05/02/2015 7:57am 05/02/2015 8: 18am Random Glucose 92 mg/dL 70-110 05/02/2015 7:57am 05/02/2015 8:36am Blood Urea Nitrogen 7 mg/dL 7-18 05/02/2015 7:57am 05/02/2015 8:36am Creatinine 0.7 mg/dL 0.6-1.0 05/02/2015 7:57am 05/02/2015 8:36am Sodium Level 136 mEq/L 136-145 05/02/2015 7:57am 05/02/2015 8:36am Potassium Level 3.6 mEq/L 3.5-5.0 05/02/2015 7:57am 05/02/2015 8:36am Chloride Level 102 mEq/L 98-107 05/02/2015 7:57am 05/02/2015 8:36am Carbon Dioxide Level 23.1 mEq/L 21-32 05/02/2015 7:57am 05/02/2015 8: 36am Calcium Level 8.4 mg/dL L 8.8-10.5 05/02/2015 7:57am 05/02/2015 8:36am HCG Beta Subunit [id number] IU/L 05/02/2015 7:57am 05/02/2015 8:50am 9- 130 mIU/ml INDICATES 3-4 WEEKS POST LMP 75-2,600 mIU/ml INDICATES 4-5 WEEKS POST LMP 850-20,800 mIU/ml INDICATES 5-6 WEEKS POST LMP 4,000-100,200 mIU/ml INDICATES 6-7 WEEKS POST LMP 11,500-289,000 mIU/ml INDICATES 7-12 WEEKS POST LMP 18,000-137,000 mIU/ml INDICATES 12-16 WEEKS POST LMP 1,400-53,000 mIU/ml INDICATES 16-29 WEEKS POST LMP (2ND TRIMESTER) 940-60,000 mIU/ML INDICATES 29-41 WEEKS (3RD TRIMESTER) Glomerular Filtration Rate Calc 105.1 mL/min 05/02/2015 7:57am 2014 8:36am Pending Laboratory Results Test Name Collection Date/Time Procedures No known history of procedures. Encounters Encounter Location Arrival/Admit Date Discharge/Depart Date Attending Provider Departed [facility] [place] 07/24/15 4:48pm 07/24/15 9:14pm ANUM SOLIS M.D. Registered [facility] [place] 07/05/15 8:18am ADRIANE URBINA Departed Emergency Room [place] 05/02/15 7:13am 05/02/15 9:16am CHELA ALCOCER MD
--- OUTSIDE RECORDS SUMMARY | 2018-04-16 22:00 | XMS REPORT | Continuity of Care Document ---
Author Author [facility] Organization [facility] Address [facility] [address] [place] [address] Phone Unavailable Support Name Relationship Address Phone BRYAN ADAMS/PANKAJ SIMS Caregiver [address] [place] [address] JOVAN YU Power DO Caregiver Unknown KAYLYNNYOLY Next Of Kin [address] [address] Insurance Providers Payer Name Policy Number Subscriber Name Relationship [employer] [facility] [id number] Ethan Clay 18 Self / Same As Patient Advance Directives Directive Response Recorded Date/Time Do you have an Advanced Directive? No 08/15/03 11:06am Advance Directives No 01/15/14 10:24am Living Will No 01/15/14 10:24am Health Care Proxy No 01/15/15 12:45pm Power of Intern Architect for Health Care No 01/15/14 10:24am Organ, Tissue, or Eye Donor No 01/15/14 10:24am Do you have a signed organ donor card? No 08/15/03 11:06am Problems Medical Problems Problem Onset Date Status Costochondritis Unknown Active Ankle Sprain Unknown Active Rectal bleed Unknown Active Medications Medication Dose Route Sig Days/Qty Instructions Order Date Discontinued Date Status Albuterol (VENTOLIN 17GM HFA Inhaler*) 2 Puff IH NEEDED 09/08/13 02/21/14 Discontinued Metformin HCl 500 Mg PO TWICE A DAY 09/08/13 12/23/13 Discontinued Gabapentin 300 Mg PO THREE TIMES A DAY 09/08/13 01/15/15 Discontinued Loratadine 10 Mg PO DAILY 09/08/13 01/15/14 Discontinued Lurasidone HCl 40 Mg PO BEDTIME 09/08/13 12/23/13 Discontinued Naproxen 500 Mg PO FOUR TIMES DAILY 09/08/13 01/15/14 Discontinued Indomethacin 50 Mg PO TWICE A DAY 10 Qty 12/23/13 01/15/14 Discontinued Omeprazole 20 Mg PO DAILY 14 Qty 12/23/13 01/15/14 Discontinued Tramadol HCl 50 Mg PO EVERY 4-6 HRS NEEDED PAIN 12/23/13 Discontinued Ibuprofen (Motrin 200 mg Tab*) 200 Mg PO EVERY 4-6 HOURS 01/15/14 Discontinued Oxycodone Hcl/Acetaminophen* 1 Ea PO EVERY 4-6 HRS NEEDED PAIN 15 Qty 01/15/14 02/21/14 Discontinued Esomeprazole 20 Mg Cap 20 Mg PO DAILY 30 Qty 01/15/14 02/21/14 Discontinued Lurasidone HCl 40 Mg PO DAILY 01/15/14 02/21/14 Discontinued Oxycodone Hcl/Acetaminophen 1-2 Tab PO EVERY 6 HRS NEEDED FOR PAIN 24 Qty 01/17/14 02/21/14 Discontinued Docusate Sodium 100 Mg PO TWICE A DAY 60 Qty 01/17/14 02/21/14 Discontinued Loratadine 10 Mg PO DAILY 03/17/14 Active Albuterol (VENTOLIN 17GM HFA Inhaler*) 2 Puff INH NEEDED INHALE 2 PUFFS 03/17/14 Active [unk. antidepressant] 1 Cap PO DAILY 03/17/14 Active Omeprazole 20 Mg PO DAILY 14 Qty 03/17/14 03/31/14 Discontinued Acetaminophen/Hydrocodone Bitart (Lortab 5-325*) 1 Each PO EVERY 6 HRS NEEDED FOR PAIN 10 Qty 03/31/14 01/15/15 Discontinued Oxycodone HCl 5 Mg PO 01/15/15 Active Social History Social History Problem Response Recorded Date/Time Smoking Status Former smoker 01/15/2014 10:24am Sexual History Heterosexual 10/01/2012 11:37pm Query Response Start Date Stop Date Smoking Status Former smoker Hospital Discharge Instructions No hospital discharge instructions. Plan of Care No plan of care. Functional Status Query Response Date Recorded Ady Coma Scale Total 15 January 15, 2015 1:31pm Patient Behavior Anxious Crying January 15, 2015 12:40pm Allergies, Adverse Reactions, Alerts Allergen Type Severity [...] Vital Signs Vital Response Date/Time Temperature (Fahrenheit) 98.9 degrees F (97.6 - 99.5) Temperature Source Temporal Artery Pulse Rate (adult) 110 bpm (60 - 90) Respiratory Rate 20 bpm (12 - 24) Blood Pressure 114/72 mm Hg O2 Sat by Pulse Oximetry 99 % (90 - 100) Oxygen Delivery Method Pain Intensity 5 Pain Location Body Site Modifier Pain Description Throbbing Pain Duration 15-30 Minutes Height 5 ft 4 in Weight 251 lb Body Mass Index 43.0 kg/m^2 Results Test Source Date Result Interp. Ref. Range Comments Alanine Aminotransferase (ALT/SGPT) February 21, 2014 6:48pm 30 U/L N 12-78 Albumin February 21, 2014 6:48pm 3.3 gm/dL L 3.4-5.0 Arterial Blood Base Excess May 27, 2005 9:20am -1.2 mmol/L N -3.0- 3.0 Arterial Blood Oxygen Saturation May 27, 2005 9:20am 98.8 % N 94- 100 Aspartate Amino Transf (AST/SGOT) February 21, 2014 6:48pm 26 U/L N 15-37 Barbiturates February 21, 2014 6:48pm Negative - Basophils # (Auto) March 17, 2014 5:08pm 0.1 K/uL N 0.0-0.2 Basophils (%) (Auto) March 17, 2014 5:08pm 1.4 % H 0.0-1.0 Biopsy Helicobacter pylori Screen January 17, 2014 10:18am Negative at 24 hr - ANTRUM Blood Gas A-a Gradient May 01, 2004 6:35pm 0.83 - Specimen Comments: ON RA Blood Gas Comments May 27, 2005 9:20am Rr x1 - Blood Gas HCO3 May 27, 2005 9:20am 20.8 mmol/L N 20.0-26.0 Blood Gas PCO2 May 27, 2005 9:20am 29.9 mmHg L 35.0-45.0 Blood Gas PO2 May 27, 2005 9:20am 135.2 mmHg H 80.0-100.0 Blood Gas Total CO2 May 27, 2005 9:20am 21.7 mmol/L N 21.0-32.0 Blood Gas pH May 27, 2005 9:20am 7.45 N 7.35-7.45 Blood Urea Nitrogen March 17, 2014 5:08pm 10 mg/dL N 7-18 Calcium Level March 17, 2014 5:08pm 8.7 mg/dL L 8.8-10.5 Carbon Dioxide Level March 17, 2014 5:08pm 26.5 mEq/L N 21-32 Chloride Level March 17, 2014 5:08pm 102 mEq/L N 98-107 Creatine Kinase MB December 23, 2013 8:54am < 0.5 NG/ML 0-3.6 Creatinine March 17, 2014 5:08pm 1.1 mg/dL H 0.6-1.0 D-Dimer December 23, 2013 8:34am 0.34 MG/L N 0.19-0.50 PLEASE NOTE REFERENCE RANGE Cut-off value for D-Dimer is 0.50 mg/L. The results of this test should always be interpreted in conjunction with pretest probability assesement to aid in the diagnosis of venous thromboembolism (VTE) [deep vein thrombosis (DVT) or pulmonary embolism (PE). Eosinophils # (Auto) March 17, 2014 5:08pm 0.1 K/uL N 0.0-0.7 Eosinophils (%) (Auto) March 17, 2014 5:08pm 1.3 % N 0.0-2.0 Glomerular Filtration Rate Calc March 17, 2014 5:08pm 62.9 mL/min N 60.0- 128.0 Hematocrit March 17, 2014 5:08pm 39.2 % N 37.0-47.0 Hemoglobin March 17, 2014 5:08pm 13.2 gm/dL N 12.0-16.0 Human Chorionic Gonadotropin, Qual May 26, 2005 11:15pm Negative - Lymphocytes # (Auto) March 17, 2014 5:08pm 2.4 K/uL N 1.2-3.4 Lymphocytes (%) (Auto) March 17, 2014 5:08pm 31.6 % N 20.5-51.1 Magnesium Level December 23, 2013 8:54am 2.0 mg/dL N 1.8-2.4 Mean Corpuscular Hemoglobin March 17, 2014 5:08pm 29.2 pg N 27.0-31.0 Mean Corpuscular Hemoglobin Concent March 17, 2014 5:08pm 33.7 g/dL N 30.0-37.0 Mean Corpuscular Volume March 17, 2014 5:08pm 86.7 fL N 81.0-99.0 Mean Platelet Volume March 17, 2014 5:08pm 6.0 fL L 7.4-10.4 Monocytes # (Auto) March 17, 2014 5:08pm 0.5 K/uL N 0.1-0.6 Monocytes (%) (Auto) March 17, 2014 5:08pm 7.2 % N 1.7-9.3 Myoglobin December 23, 2013 8:54am 30.0 NG/ML N 10.5-92.5 Neutrophils # (Auto) March 17, 2014 5:08pm 4.5 K/uL N 2.0-6.9 Neutrophils (%) (Auto) March 17, 2014 5:08pm 58.5 % N 42.2-75.2 Phencyclidine (PCP) Screen February 21, 2014 6:48pm Negative - Platelet Count March 17, 2014 5:08pm 355 K/uL N 130-400 Potassium Level March 17, 2014 5:08pm 4.1 mEq/L N 3.5-5.0 Prothromb Time International Ratio March 17, 2014 5:08pm 0.99 N 0.9-1.1 THERAPEUTIC RANGE 1.0 - 3.0 PLEASE NOTE REFERENCE RANGE Prothrombin Time March 17, 2014 5:08pm 10.0 SECONDS N 9.10-11.20 Random Glucose March 17, 2014 5:08pm 98 mg/dL N 70-110 Red Blood Count March 17, 2014 5:08pm 4.52 M/uL N 4.20-5.40 Red Cell Distribution Width March 17, 2014 5:08pm 12.5 % N 11.5-14.5 Rheumatoid Factor Screen May 01, 2004 4:55pm Negative - NEW ADMIT Sodium Level March 17, 2014 5:08pm 138 mEq/L N 136-145 Stool Occult Blood March 17, 2014 4:45pm Positive H - Thyroid Stimulating Hormone (TSH) May 01, 2004 4:55pm 1.73 uIU/ml N 0.35-4.82 NEW ADMIT Thyroxine (T4) May 27, 2005 9:13am 7.3 UG/DL N 4.8-13.9 Total Alkaline Phosphatase February 21, 2014 6:48pm 86 U/L N 50-136 Total Bilirubin February 21, 2014 6:48pm 0.20 mg/dL N 0.00-1.00 Total Creatine Kinase December 23, 2013 8:54am 131 U/L N 26-192 Total Protein February 21, 2014 6:48pm 7.1 gm/dL N 6.4-8.2 Tricyclic Antidepressants February 21, 2014 6:48pm Negative - Triiodothyronine (T3) Uptake May 27, 2005 9:13am 32.0 % N 30.0- 39.0 Troponin I December 23, 2013 8:54am 0.0 NG/ML N 0.0-0.2 Urine Amorphous Sediment May 01, 2004 10:30pm Trace H - Urine Amphetamines Screen February 21, 2014 6:48pm Negative - Urine Appearance February 21, 2014 6:48pm Clear - Urine Bacteria February 21, 2014 6:48pm Trace - Urine Benzodiazepines Screen February 21, 2014 6:48pm Negative - Urine Bilirubin February 21, 2014 6:48pm Negative - Urine Cocaine Level February 21, 2014 6:48pm Negative - Urine Color February 21, 2014 6:48pm Yellow - Urine Glucose (UA) February 21, 2014 6:48pm Negative mg/dL - Urine HCG, Qualitative March 31, 2014 3:30pm Negative - Urine Ketones February 21, 2014 6:48pm Negative mg/dL - Urine Leukocyte Esterase February 21, 2014 6:48pm Negative - Urine Marijuana (THC) Screen February 21, 2014 6:48pm Negative - Urine Methamphetamines Screen February 21, 2014 6:48pm Negative - Urine Mucus February 21, 2014 6:48pm Few H - Urine Nitrate February 21, 2014 6:48pm Negative - Urine Occult Blood February 21, 2014 6:48pm Negative - Urine Opiates Screen February 21, 2014 6:48pm Negative - Urine Protein February 21, 2014 6:48pm Negative mg/dL - Urine RBC February 21, 2014 6:48pm Negative /hpf - Urine Specific [place] February 21, 2014 6:48pm > 1.030 H 1.010-1.025 Urine Squamous Epithelial Cells February 21, 2014 6:48pm 3-5 /hpf - Urine Urobilinogen February 21, 2014 6:48pm 0.2 E.U./dL - Urine WBC February 21, 2014 6:48pm Negative /hpf - Urine pH February 21, 2014 6:48pm 6.0 - White Blood Count March 17, 2014 5:08pm 7.6 K/uL N 4.8-10.8 Procedures No known history of procedures. Encounters Encounter Location Date/Time Departed Emergency Room [facility] 01/15/15 12:40pm Recent Diagnosis
--- OUTSIDE RECORDS SUMMARY | 2018-04-16 22:01 | XMS REPORT | Continuity of Care Document ---
Author Author [facility] Organization [facility] Address Unknown Phone Unavailable Allergies Active Description Code Type Severity Reaction Onset Reported/Identified Relationship to Patient Clinical Status Yes ASPIRIN 1191 Drug Allergy N/A N/A Yes CODEINE Drug Allergy N/A N/A Yes PAPER TAPE 1"[id number] Drug Allergy N/A N/A Yes NKDA N/A N/A Yes CODEINE [id number] DRUG N/A ITCHING Yes CODEINE [id number] DRUG N/A N/A Yes No known allergies Drug N/A N/A Medications Medication Packaging Start Date Stop Date Route Dosage Sig NAPROSYN ORAL 10/04/2013 04/15/2015 ORAL 6060 twice daily LATUDA ORAL 10/04/2013 04/15/2015 ORAL 3030 DAILY GABAPENTIN ORAL 10/04/2013 04/15/2015 ORAL 9090 three times daily DIFLUCAN ORAL 10/03/2015 10/04/2015 ORAL 11 NOW Problems Date Dx Coded Attending Type Code Diagnosis Diagnosed By 11/14/2017 P [id number] Obesity complicating , second trimester 11/14/2017 S Z369 Encounter for screening, unspecified 11/18/2017 S E669 Obesity, unspecified 11/18/2017 P K18303 Gestational diabetes mellitus in , unspecified control 11/18/2017 S Z3A17 17 weeks gestation of 11/18/2017 S Z713 Dietary counseling and surveillance Procedures There is no data. Results Test Result Range HBsAg Screen - 10/07/17 09:45 HBsAg Screen Negative Negative RPR, Rfx Qn RPR/Confirm TP - 10/07/17 09:45 RPR Non Reactive Non Reactive Rubella Antibodies, IgG - 10/07/17 09:45 Rubella Antibodies, IgG 8.91 index Immune >0.99 Encounters ACCT No. Visit Date/Time Discharge Status Pt. Type Provider Facility Loc./Unit Complaint [id number] 03/28/2018 12:00:52 03/28/2018 23:59:59 CLS Outpatient Mya Moore [id number] 03/21/2018 10:37:34 03/21/2018 23:59:59 CLS Outpatient Loreto Mooreanne [id number] 03/15/2018 09:40:52 03/15/2018 23:59:59 CLS Outpatient OscarLoreto kamaraanne [id number] 03/01/2018 09:55:15 03/01/2018 23:59:59 CLS Outpatient [facility] [id number] 02/15/2018 09:40:36 02/15/2018 23:59:59 CLS Outpatient [facility] [id number] 02/01/2018 09:52:13 02/01/2018 23:59:59 CLS Outpatient TopazLoretoMya [id number] 01/04/2018 09:52:54 01/04/2018 23:59:59 CLS Outpatient [facility] [id number] 12/29/2017 14:04:48 12/29/2017 23:59:59 CLS Outpatient [facility] [id number] 12/14/2017 11:09:31 12/14/2017 23:59:59 CLS Outpatient [facility] [id number] 12/10/2017 10:58:48 12/10/2017 23:59:59 CLS Outpatient Juan Lyons [id number] 11/30/2017 10:42:11 11/30/2017 23:59:59 CLS Outpatient [facility] [id number] 11/16/2017 10:30:56 11/16/2017 23:59:59 CLS Outpatient [facility] [id number] 10/08/2017 09:48:40 10/08/2017 23:59:59 CLS Outpatient [facility] [id number] 09/17/2017 18:23:34 09/17/2017 23:59:59 CLS Outpatient Ava Sahu [id number] 09/01/2017 16:55:57 09/01/2017 23:59:59 CLS Outpatient OscarLoreto brownanne [id number] 08/18/2017 14:54:15 08/18/2017 23:59:59 CLS Outpatient Miri Clemens [id number] 08/10/2017 14:30:42 08/10/2017 23:59:59 CLS Outpatient HetlingerMahendra [id number] 05/17/2017 14:32:10 05/17/2017 23:59:59 CLS Outpatient HetlingerMahendra [id number] 02/25/2017 16:38:13 02/25/2017 23:59:59 CLS Outpatient Mahendra Read [id number] 02/22/2017 18:50:37 02/22/2017 23:59:59 CLS Outpatient Cristino Leslie [id number] 02/09/2017 10:22:38 02/09/2017 23:59:59 CLS Outpatient Andria Rodriguez [id number] 01/26/2017 16:15:19 01/26/2017 23:59:59 CLS Outpatient Alen Benitez [id number] 01/18/2017 17:36:35 01/18/2017 23:59:59 CLS Outpatient Alen Benitez [id number] 12/29/2016 16:32:26 12/29/2016 23:59:59 CLS Outpatient Mahendra Read [id number] 12/17/2016 16:37:23 12/17/2016 23:59:59 CLS Outpatient Alen Benitez [id number] 12/14/2016 16:31:42 12/14/2016 23:59:59 CLS Outpatient Mahendra Read [id number] 11/25/2016 12:26:37 11/25/2016 23:59:59 CLS Outpatient Andria Rodriguez [id number] 11/12/2016 16:19:17 11/12/2016 23:59:59 CLS Outpatient Mahendra Read [id number] 11/03/2016 17:50:25 11/03/2016 23:59:59 CLS Outpatient Roby Wagoner [id number] 09/18/2016 10:55:51 09/18/2016 23:59:59 CLS Outpatient Mahendra Read [id number] 08/17/2016 18:07:01 08/17/2016 23:59:59 CLS Outpatient Cristino Leslie [id number] 07/02/2016 09:56:59 07/02/2016 23:59:59 CLS Outpatient Mahendra Read [id number] 06/04/2016 16:30:05 06/04/2016 23:59:59 CLS Outpatient Dailinger Mahendra [id number] 04/29/2016 11:26:59 04/29/2016 23:59:59 CLS Outpatient Mahendra Read [id number] 04/06/2016 09:06:19 04/06/2016 23:59:59 CLS Outpatient Mahendra Read [id number] 03/21/2016 12:10:59 03/21/2016 23:59:59 CLS Outpatient Fred Maldonado [id number] 03/16/2016 15:57:55 03/16/2016 23:59:59 CLS Outpatient Cristino Leslie [id number] 11/29/2015 09:40:16 11/29/2015 23:59:59 CLS Outpatient Mahendra Read [id number] 11/25/2015 15:36:09 11/25/2015 23:59:59 CLS Outpatient Mya Moore [id number] 11/20/2015 15:43:53 11/20/2015 23:59:59 CLS Outpatient Evgeny Lund [id number] 11/18/2015 11:55:19 11/18/2015 23:59:59 CLS Outpatient Lroeto Mooreanne [id number] 11/13/2015 15:12:38 11/13/2015 23:59:59 CLS Outpatient Mya Moore [id number] 10/31/2015 10:49:10 10/31/2015 23:59:59 CLS Outpatient Mya Moore [id number] 10/23/2015 11:50:56 10/23/2015 23:59:59 CLS Outpatient Mya Moore [id number] 10/22/2015 10:39:01 10/22/2015 23:59:59 CLS Outpatient Andria Rodriguez [id number] 07/09/2015 16:07:09 07/09/2015 23:59:59 CLS Outpatient Loreto Mooreanne [id number] 07/01/2015 16:12:36 07/01/2015 23:59:59 CLS Outpatient Loreto Mooreanne [id number] 06/05/2015 14:12:57 06/05/2015 23:59:59 CLS Outpatient Jameson Lockett [id number] 05/21/2015 18:32:55 05/21/2015 23:59:59 CLS Outpatient Genna Costa [id number] 05/07/2015 10:37:14 05/07/2015 23:59:59 CLS Outpatient Jameson Lockett [place] [id number] 04/22/2015 14:49:53 04/22/2015 23:59:59 CLS Outpatient Genna Costa [id number] 09/12/2013 17:30:06 Document Registration [id number] 10/08/2017 12:07:00 Document Registration [id number] 08/28/2017 11:41:07 08/28/2017 11:41:07 DIS Outpatient [facility] [id number] 04/01/2017 11:03:03 04/01/2017 23:59:59 DIS Outpatient Coby Graves [facility] beta [id number] 04/01/2017 10:41:42 04/01/2017 23:59:59 DIS Outpatient Coby Graves [facility] [id number] 03/30/2017 11:22:12 03/30/2017 23:59:59 DIS Outpatient RENEA MUNROE [facility] vaginal bleeding [id number] 03/30/2017 11:09:49 03/30/2017 23:59:59 DIS Outpatient Coby Graves [facility] [id number] 03/29/2017 09:37:37 03/29/2017 23:59:59 CLS Outpatient [facility] [id number] 10/08/2017 07:06:00 Document Registration [id number] 09/25/2015 09:37:00 Document Registration [id number] 09/14/2015 06:22:00 Document Registration [id number] 08/23/2015 09:20:00 Document Registration [id number] 08/22/2015 06:31:18 Document Registration [id number] 04/15/2018 13:45:24 Document Registration [id number] 04/15/2018 13:38:10 Document Registration [id number] 04/11/2018 10:26:45 Document Registration [id number] 03/29/2018 13:01:30 Document Registration [id number] 03/28/2018 11:42:21 Document Registration [id number] 03/21/2018 15:00:47 Document Registration [id number] 03/21/2018 10:45:31 Document Registration [id number] 03/18/2018 19:22:46 Document Registration [id number] 03/10/2018 19:14:12 Document Registration [id number] 02/21/2018 16:45:31 Document Registration [id number] 02/15/2018 09:34:18 Document Registration [id number] 12/09/2017 01:06:41 Document Registration [id number] 12/09/2017 01:00:23 Document Registration [id number] 12/04/2017 09:44:52 Document Registration [id number] 11/16/2017 09:53:45 Document Registration [id number] 11/16/2017 09:46:45 Document Registration [id number] 11/14/2017 08:22:08 Document Registration [id number] 10/07/2017 09:10:34 Document Registration [id number] 09/02/2017 08:10:11 Document Registration [id number] 08/12/2017 10:18:19 Document Registration [id number] 10/09/2017 06:06:00 Document Registration
[2018-04-16] MEDS ORDERED: IBUP-1780 (22:55)
[2018-04-16] MEDS ORDERED: HYDR-3812 (22:55)
[2018-04-16] MEDS ORDERED: FERR-84 (22:55)
[2018-04-16] MEDS ORDERED: NS IV 1000 ML 1,000 ML IV ONE (23:09)
[2018-04-16 23:17] LABS: BASOPHILS % (AUTO) 0 % (0-10); EOSINOPHILS # (AUTO) 0.2 10^3/uL (0.0-0.3); EOSINOPHILS % (AUTO) 2 % (0-10); HEMATOCRIT 26 % (35-52); HEMOGLOBIN 8.7 G/DL (11.5-16.0); LYMPHOCYTES % (AUTO) 27 % (12-44); MEAN CORPUSCULAR HEMOGLOBIN 30 PG (25-34); MEAN CORPUSCULAR HGB CONC 33 G/DL (32-36); MEAN CORPUSCULAR VOLUME 90 FL (80-99); MONOCYTES # (AUTO) 0.4 X 10^3 (0.0-1.0); MONOCYTES % (AUTO) 5 % (0-12); NEUTROPHILS # (AUTO) 4.9 X 10^3 (1.8-7.8); NEUTROPHILS % (AUTO) 66 % (42-75); PLATELET COUNT 271 10^3/uL (130-400); RED BLOOD COUNT 2.91 10^6/uL (4.35-5.85); RED CELL DISTRIBUTION WIDTH 16.3 % (10.0-14.5); WHITE BLOOD COUNT 7.3 10^3/uL (4.3-11.0)
[2018-04-16 23:35] LABS: ALANINE AMINOTRANSFERASE 15 U/L (0-55); ALBUMIN 2.9 GM/DL (3.2-4.5); ALKALINE PHOSPHATASE 84 U/L (40-136); BILIRUBIN,TOTAL 0.2 MG/DL (0.1-1.0); BUN/CREATININE RATIO 9; CALCIUM 8.5 MG/DL (8.5-10.1); CARBON DIOXIDE 22 MMOL/L (21-32); CHLORIDE 110 MMOL/L (98-107); CREATININE SERUM 0.64 MG/DL (0.60-1.30); GFR ESTIMATED > 60; GLUCOSE 95 MG/DL (70-105); POTASSIUM 3.9 MMOL/L (3.6-5.0); SODIUM 142 MMOL/L (135-145); TOTAL PROTEIN 5.7 GM/DL (6.4-8.2)
[2018-04-17] VITALS (12 sets, daily range): BP systolic 115–143; BP diastolic 61–90
[2018-04-17] MEDS ORDERED: RT-ALBUTEROL/IPRATROPIUM 3 ML (DUONEB) VIAL INH ONE (00:45)
--- NOTE | 2018-04-17 01:22 | ED General ---
General Chief Complaint: -Female Stated Complaint: BLEEDING AFTER DELIVERY ON WEDNESDAY Nursing Triage Note: PT PRESENTS TO ER WITH COMPLAINT OF DIZZINESS AND POSSIBLE LOW HGB. PT DELIVERED ON WEDNESDAY IN [facility]. STATES HER HGB WAS LOW, AND BETWEEN WEDNESDAY AND NOW HAS HAD 4 UNITS OF BLOOD. PT STATES SHE IS NOT HAVING MUCH VAGINAL BLEEDING, A FEW CLOTS WHEN SHE COUGHS. PT STATES SHE WAS DISCHARGED FROM [place] TODAY. Nursing Sepsis Screen: No Definite Risk Source of Information: Patient Exam Limitations: No Limitations History of Present Illness Date Seen by Provider: Apr 16, 2018 Time Seen by Provider: 23:07 Initial Comments This 32-year-old woman presents to the emergency room with complaints of dizziness, lightheadedness, and feeling hot and shaky. She delivered a baby vaginally in [place] on April 12. She was dismissed from the hospital on April 14. She was notably anemic during her stay and received a transfusion. She returned to the [place] ER on Wednesday, April 15 with similar complaints. She was transfused an additional 2 units of red blood cells per her report. Symptoms persist despite the second transfusion. She feels like there is something more going on than just anemia. She also complains of some mild abdominal pain particularly in the upper abdomen. She states her bleeding appears normal for her state when compared with prior deliveries. Allergies and Home Medications Allergies Coded Allergies: codeine (Verified Allergy, Mild, ITCHING, 04/16/18) Patient Home Medication List Home Medication List Reviewed: Yes Review of Systems Constitutional: no symptoms reported EENTM: no symptoms reported Respiratory: no symptoms reported Cardiovascular: see HPI Gastrointestinal: no symptoms reported Genitourinary: see HPI : No Musculoskeletal: no symptoms reported Skin: no symptoms reported Psychiatric/Neurological: See HPI Hematologic/Lymphatic: No Symptoms Reported Immunological/Allergic: no symptoms reported Past Tbdlzob-Tkllnu-Nhiazq Hx Patient Social History Alcohol Use: Denies Use Recreational Drug Use: No Smoking Status: Smoker Current Status [facility] Recent Foreign Travel: No Contact w/Someone Who Travel: No Recent Infectious Disease Expo: No Recent Hopitalizations: Yes (DELIVERY 04/12/18) Immunizations Up To Date Tetanus Booster (TDap): Unknown PED Vaccines UTD: Yes Seasonal Allergies Seasonal Allergies: Yes Past Medical History Surgeries: Yes Appendectomy, Gallbladder, Orthopedic (ganglion cyst removed from the left hand , left ankle reconstruction) Respiratory: Yes Asthma Cardiac: No Neurological: No : No Reproductive Disorders: No Genitourinary: No Gastrointestinal: No Musculoskeletal: No Endocrine: No HEENT: No Cancer: No Psychosocial: No Integumentary: No Blood Disorders: No Adverse Reaction/Blood Tranf: No Physical Exam Vital Signs Vital Signs - First Documented 04/16/18 22:30 Temp 98.9 Pulse 99 Resp 20 B/P (MAP) 138/102 (114) Pulse Ox 99 O2 Delivery Room Air Capillary Refill : Less Than 3 Seconds Height, Weight, BMI Height: 5'3.00" Weight: 289lbs. oz. 131.583921hn; BMI Method:Stated General Appearance: No Apparent Distress, WD/WN, Obese HEENT: PERRL/EOMI, Normal ENT Inspection Neck: Normal Inspection Respiratory: Lungs Clear, Normal Breath Sounds, No Accessory Muscle Use, No Respiratory Distress Cardiovascular: Regular Rate, Rhythm (borderline tachycardia), No Edema, No Murmur Gastrointestinal: Normal Bowel Sounds, Soft, Tenderness (minimal scattered tenderness. No focal tenderness over the uterus) Extremity: Non Tender, No Calf Tenderness, Swelling (subtle edema of the ankles and feet bilaterally, right greater than left), Other (negative Rebeka) Neurologic/Psychiatric: Alert, Oriented x3, No Motor/Sensory Deficits, Normal Mood/Affect, director wholesale II-XII Norm as Tested Skin: Normal Color, Warm/Dry Progress/Results/Core Measures Suspected Sepsis Recent Fever Within 48 Hours: No Infection Criteria Present: None New/Unexplained Altered Menta: No Sepsis Screen: No Definite Risk SIRS Temperature:98.9 Pulse: 99 Respiratory Rate: 20 Laboratory Tests 04/16/18 22:39: White Blood Count 7.3 Blood Pressure 138 /102 Mean: 114 Laboratory Tests 04/16/18 22:39: Creatinine 0.64, Platelet Count 271, Total Bilirubin 0.2 Results/Orders Lab Results Laboratory Tests Test 04/16/18 22:39 Range/Units White Blood Count 7.3 4.3-11.0 10^3/uL Red Blood Count 2.91 L 4.35-5.85 10^6/uL Hemoglobin 8.7 L 11.5-16.0 G/DL Hematocrit 26 L 35-52 % Mean Corpuscular Volume 90 80-99 FL Mean Corpuscular Hemoglobin 30 25-34 PG Mean Corpuscular Hemoglobin Concent 33 32-36 G/DL Red Cell Distribution Width 16.3 H 10.0-14.5 % Platelet Count 271 130-400 10^3/uL Mean Platelet Volume 9.0 7.4-10.4 FL Neutrophils (%) (Auto) 66 42-75 % Lymphocytes (%) (Auto) 27 12-44 % Monocytes (%) (Auto) 5 0-12 % Eosinophils (%) (Auto) 2 0-10 % Basophils (%) (Auto) 0 0-10 % Neutrophils # (Auto) 4.9 1.8-7.8 X 10^3 Lymphocytes # (Auto) 2.0 1.0-4.0 X 10^3 Monocytes # (Auto) 0.4 0.0-1.0 X 10^3 Eosinophils # (Auto) 0.2 0.0-0.3 10^3/uL Basophils # (Auto) 0.0 0.0-0.1 10^3/uL D-Dimer 2.80 H 0.00-0.49 UG/ML Sodium Level 142 135-145 MMOL/L Potassium Level 3.9 3.6-5.0 MMOL/L Chloride Level 110 H 98-107 MMOL/L Carbon Dioxide Level 22 21-32 MMOL/L Anion Gap 10 5-14 MMOL/L Blood Urea Nitrogen 6 L 7-18 MG/DL Creatinine 0.64 0.60-1.30 MG/DL Estimat Glomerular Filtration Rate > 60 BUN/Creatinine Ratio 9 Glucose Level 95 70-105 MG/DL Calcium Level 8.5 8.5-10.1 MG/DL Corrected Calcium 9.4 8.5-10.1 MG/DL Total Bilirubin 0.2 0.1-1.0 MG/DL Aspartate Amino Transf (AST/SGOT) 21 5-34 U/L Alanine Aminotransferase (ALT/SGPT) 15 0-55 U/L Alkaline Phosphatase 84 40-136 U/L Troponin I < 0.30 <0.30 NG/ML Total Protein 5.7 L 6.4-8.2 GM/DL Albumin 2.9 L 3.2-4.5 GM/DL My Orders Orders - SHANNON SHERIDAN MD Saline Lock/Iv-Start (04/16/18 23:09) Ns Iv 1000 Ml (Sodium Chloride 0.9%) (04/16/18 23:09) Albuterol/Ipra Inhalation Soln (Duoneb I (04/17/18 00:45) Svn Small Volume Nebulizer (04/17/18 00:43) Fibrin Degradation Products (04/17/18 01:18) Troponin I (04/17/18:18) Ekg Tracing (04/17/18:18) Ct Pat Chest/Noang Abd-Pelv W (04/17/18 01:57) Heparin Drip 60017 Unit/500ml (Heparin (04/17/18 03:27) Heparin (Bolus Per Protocol) (Heparin (B (04/17/18 03:30) Partial Thromboplastin Time (04/17/18 03:27) Protime With Inr (04/17/18 03:27) Cbc No Diff (04/20/18 05:00) Cbc No Diff (04/23/18 05:00) Platelet Count (04/18/18 05:00) Platelet Count (04/19/18 05:00) Platelet Count (04/20/18 05:00) Platelet Count (04/21/18 05:00) Platelet Count (04/22/18 05:00) Platelet Count (04/23/18 05:00) Platelet Count (04/24/18 05:00) Platelet Count (04/25/18 05:00) Platelet Count (04/26/18 05:00) Platelet Count (04/27/18 05:00) Partial Thromboplastin Time (04/17/18 07:27) Protime With Inr (04/20/18 05:00) Protime With Inr (04/21/18 05:00) Protime With Inr (04/22/18 05:00) Protime With Inr (04/23/18 05:00) Protime With Inr (04/24/18 05:00) Protime With Inr (04/25/18 05:00) Protime With Inr (04/26/18 05:00) Protime With Inr (04/27/18 05:00) Protime With Inr (04/28/18 05:00) Protime With Inr (04/29/18 05:00) Initiate Heparin Full Protocol (04/17/18 03:27) Medications Given in ED Current Medications Medications Dose Ordered Sig/Demetrius Route Start Time Stop Time Status Last Admin Dose Admin Albuterol/ Ipratropium 3 ml ONCE ONCE INH 04/17/18 00:45 04/17/18 00:46 DC 04/17/18 00:57 3 ML Sodium Chloride 1,000 ml @ 0 mls/hr Q0M ONCE IV 04/16/18 23:09 04/16/18 23:10 DC 04/16/18 23:21 1,000 MLS/HR Vital Signs/I&O 04/16/18 04/17/18 22:30 00:58 Temp 98.9 Pulse 99 Resp 20 B/P (MAP) 138/102 (114) Pulse Ox 99 O2 Delivery Room Air Room Air Capillary Refill : Less Than 3 Seconds Blood Pressure Mean: 114 Progress Note #1: Time: 01:20 Progress Note Patient received a liter of IV fluid. This did not improve her symptoms much. After reassessment she now complains of swelling in the right lower extremity. Only trace edema was notable on exam. Pedal pulse was normal. There was no tenderness, heat, erythema, or positive findings on Rebeka test. Patient then also complained of chest tightness which she did not complain of previously. She reports this has been occurring off and on since late . She is experiencing some chest tightness now. She does report some intermittent wheezing as well. We discussed options and she chose to try a nebulizer treatment. After DuoNeb treatment her symptoms were actually worse. We discussed possible causes and options for further workup after her tightness worsened. After discussion of risks and benefits, patient wishes to pursue further workup for the chest tightness with EKG, troponin, and d-dimer. She is aware that the d-dimer will likely be positive due to her state and she is ready to commit to CT angiogram if d-dimer is positive. Hemoglobin was 8.7 which she states is higher than her last hemoglobin done in [place]. Progress Note #2: Time: 03:47 Progress Note D-dimer was notably elevated. CT angiogram of the chest with a CT of the abdomen and pelvis with contrast was ordered. Report was reviewed and patient was noted to have bilateral pulmonary emboli. Case was discussed with Dr. Easley and Dr. Verdugo. A plan was developed to start patient on a heparin drip. This was felt to be the safest option as patient still has some vaginal bleeding from her state and is presently anemic. Heparin drip may be stopped abruptly if patient has any bleeding complications. She will be admitted to the cardiac step down unit. Patient was additionally found to have a ventral hernia containing only fat. This may explain some of her abdominal discomfort. Heparin drip was initiated in the ER. Patient notes that she is not breast-feeding. ECG Initial ECG Impression Date: Apr 17, 2018 Initial ECG Impression Time: 01:33 Initial ECG Rate: 87 Initial ECG Rhythm: Normal Sinus Initial ECG Impression: Normal Comment Normal sinus rhythm with no ST elevation or depression. No abnormal intervals or axis deviation. Diagnostic Imaging Diagonstic Imaging: CT Plain Films/CT/US/NM/MRI: chest, abdomen, pelvis Comments CT angiogram of the chest with non-angiogram contrast study of the abdomen and pelvis was viewed by me and report reviewed. Bilateral pulmonary emboli were noted without right heart strain. Abdomen demonstrated a ventral hernia containing fat. Departure Communication (Admissions) Time/Spoke to Admitting Phy: 03:15 Dr. Easley Impression Primary Impression: Bilateral pulmonary embolism Additional Impressions: Anemia Qualified Codes: D64.9 - Anemia, unspecified state Ventral hernia Qualified Codes: K43.9 - Ventral hernia without obstruction or gangrene Disposition: 09 ADMITTED INPATIENT Condition: Improved Admissions Decision to Admit Reason: Admit from ER (General) Decision to Admit/Date: Apr 17, 2018 Time/Decision to Admit Time: 03:15 Departure-Patient Inst. Referrals: NO,LOCAL PHYSICIAN (PCP) Primary Care Physician SHANNON SHERIDAN MD Apr 17, 2018 01:22
[2018-04-17] MEDS: HEParin 1000 UNIT/ML (10ML VIAL) FOR BOLUS IV SCH ×3 (03:42→17:11)
[2018-04-17] MEDS: HEParin DRIP 25000 UNIT/500ML 500 ML IV SCH ×2 (03:46→18:34)
--- OUTSIDE RECORDS SUMMARY | 2018-04-17 03:48 | XMS REPORT | Continuity of Care Document ---
Author Author [facility] Organization [facility] Address Unknown Phone Unavailable Allergies Active Description Code Type Severity Reaction Onset Reported/Identified Relationship to Patient Clinical Status Yes ASPIRIN 1191 Drug Allergy N/A N/A Yes CODEINE Drug Allergy N/A N/A Yes PAPER TAPE 1"[id number] Drug Allergy N/A N/A Yes NKDA N/A N/A Yes CODEINE 71923293 DRUG N/A ITCHING Yes CODEINE 24898544 DRUG N/A N/A Yes No known allergies Drug N/A N/A Medications Medication Packaging Start Date Stop Date Route Dosage Sig NAPROSYN ORAL 10/04/2013 04/15/2015 ORAL 6060 twice daily LATUDA ORAL 10/04/2013 04/15/2015 ORAL 3030 DAILY GABAPENTIN ORAL 10/04/2013 04/15/2015 ORAL 9090 three times daily DIFLUCAN ORAL 10/03/2015 10/04/2015 ORAL 11 NOW Problems Date Dx Coded Attending Type Code Diagnosis Diagnosed By 11/14/2017 P A14971 Obesity complicating , second trimester 11/14/2017 S Z369 Encounter for screening, unspecified 11/18/2017 S E669 Obesity, unspecified 11/18/2017 P E68282 Gestational diabetes mellitus in , unspecified control [...] Status Pt. Type Provider Facility Loc./Unit Complaint [id number] 03/28/2018 12:00:52 03/28/2018 23:59:59 CLS Outpatient Mya Moore [id number] 03/21/2018 10:37:34 03/21/2018 23:59:59 CLS Outpatient Loreto Mooreanne [id number] 03/15/2018 09:40:52 03/15/2018 23:59:59 CLS Outpatient OscarLoreto kamaraanne [id number] 03/01/2018 09:55:15 03/01/2018 23:59:59 CLS [place] [facility] [id number] 02/15/2018 09:40:36 02/15/2018 23:59:59 CLS Out[place] [facility] [id number] 02/01/2018 09:52:13 02/01/2018 23:59:59 CLS Outpatient [place] [id number] 01/04/2018 09:52:54 01/04/2018 23:59:59 CLS Outpatient [place] [facility] [id number] 12/29/2017 14:04:48 12/29/2017 23:59:59 CLS Outpatient [place] [facility] [id number] 12/14/2017 11:09:31 12/14/2017 23:59:59 CLS Out[place] [facility] [id number] 12/10/2017 10:58:48 12/10/2017 23:59:59 CLS Outpatient Juan Lyons [id number] 11/30/2017 10:42:11 11/30/2017 23:59:59 CLS Out[place] [facility] [id number] 11/16/2017 10:30:56 11/16/2017 23:59:59 CLS Outpatient [place] [facility] [id number] 10/08/2017 09:48:40 10/08/2017 23:59:59 CLS Outpatient [place] [facility] [id number] 09/17/2017 18:23:34 09/17/2017 23:59:59 CLS Outpatient Ava Sahu [id number] 09/01/2017 16:55:57 09/01/2017 23:59:59 CLS Outpatient OscarLoreto brownanne [id number] 08/18/2017 14:54:15 08/18/2017 23:59:59 CLS Outpatient Miri Clemens [id number] 08/10/2017 14:30:42 08/10/2017 23:59:59 CLS Outpatient HetlingerMahendra [id number] 05/17/2017 14:32:10 05/17/2017 23:59:59 CLS Outpatient HetlingerMahendra [id number] 02/25/2017 16:38:13 02/25/2017 23:59:59 CLS Outpatient Mahendra Read [id number] 02/22/2017 18:50:37 02/22/2017 23:59:59 CLS Outpatient Cristino Leslie [id number] 02/09/2017 10:22:38 02/09/2017 23:59:59 CLS Outpatient Andria Rodriguez [id number] 01/26/2017 16:15:19 01/26/2017 23:59:59 CLS Outpatient Alen Benitez [id number] 01/18/2017 17:36:35 01/18/2017 23:59:59 CLS Outpatient Alen Benitez [id number] 12/29/2016 16:32:26 12/29/2016 23:59:59 CLS Outpatient Mahendra Read [id number] 12/17/2016 16:37:23 12/17/2016 23:59:59 CLS Outpatient Alen Benitez [id number] 12/14/2016 16:31:42 12/14/2016 23:59:59 CLS Outpatient Mahendra Read [id number] 11/25/2016 12:26:37 11/25/2016 23:59:59 CLS Outpatient Andria Rodriguez [id number] 11/12/2016 16:19:17 11/12/2016 23:59:59 CLS Outpatient Mahendra Read [id number] 11/03/2016 17:50:25 11/03/2016 23:59:59 CLS Outpatient Royb Wagoner [id number] 09/18/2016 10:55:51 09/18/2016 23:59:59 CLS Outpatient Mahendra Read [id number] 08/17/2016 18:07:01 08/17/2016 23:59:59 CLS Outpatient Cristino Leslie [id number] 07/02/2016 09:56:59 07/02/2016 23:59:59 CLS Outpatient Mahendra Read [id number] 06/04/2016 16:30:05 06/04/2016 23:59:59 CLS Outpatient Dailinger Mahendra [id number] 04/29/2016 11:26:59 04/29/2016 23:59:59 CLS Outpatient Mahendra Read [id number] 04/06/2016 09:06:19 04/06/2016 23:59:59 CLS Outpatient Mahendra Read [id number] 03/21/2016 12:10:59 03/21/2016 23:59:59 CLS Outpatient Fred Maldonado [id number] 03/16/2016 15:57:55 03/16/2016 23:59:59 CLS Outpatient Cristino Leslie [id number] 11/29/2015 09:40:16 11/29/2015 23:59:59 CLS Outpatient Mahendra Read [id number] 11/25/2015 15:36:09 11/25/2015 23:59:59 CLS Outpatient Mya Moore [id number] 11/20/2015 15:43:53 11/20/2015 23:59:59 CLS Outpatient Evgeny Lund [id number] 11/18/2015 11:55:19 11/18/2015 23:59:59 CLS Outpatient Loreto Mooreanne [id number] 11/13/2015 15:12:38 11/13/2015 23:59:59 CLS Outpatient Mya Moore [id number] 10/31/2015 10:49:10 10/31/2015 23:59:59 CLS Outpatient Mya Moore [id number] 10/23/2015 11:50:56 10/23/2015 23:59:59 CLS Outpatient Mya Moore [id number] 10/22/2015 10:39:01 10/22/2015 23:59:59 CLS Outpatient Andria Rodriguez [id number] 07/09/2015 16:07:09 07/09/2015 23:59:59 CLS Outpatient Loreto Mooreanne [id number] 07/01/2015 16:12:36 07/01/2015 23:59:59 CLS Outpatient Loreto Mooreanne [id number] 06/05/2015 14:12:57 06/05/2015 23:59:59 CLS Outpatient Jameson Lockett [id number] 05/21/2015 18:32:55 05/21/2015 23:59:59 CLS Outpatient Genna Costa [id number] 05/07/2015 10:37:14 05/07/2015 23:59:59 CLS Outpatient Jameson Lockett [place] [id number] 04/22/2015 14:49:53 04/22/2015 23:59:59 CLS Outpatient Genna Costa [id number] 09/12/2013 17:30:06 Document Registration [id number] 10/08/2017 12:07:00 Document Registration [id number] 08/28/2017 11:41:07 08/28/2017 11:41:07 DIS Outpatient [facility] [id number] 04/01/2017 11:03:03 04/01/2017 23:59:59 DIS Outpatient Coby Graves [facility] beta [id number] 04/01/2017 10:41:42 04/01/2017 23:59:59 DIS Outpatient Coby Graves [facility] [id number] 03/30/2017 11:22:12 03/30/2017 23:59:59 DIS Outpatient RENEA MUNROE [facility] vaginal bleeding [id number] 03/30/2017 11:09:49 03/30/2017 23:59:59 DIS Outpatient Coby Graves [facility] [id number] 03/29/2017 09:37:37 03/29/2017 23:59:59 CLS Outpatient [facility] [id number] 10/08/2017 07:06:00 Document Registration [id number] 09/25/2015 09:37:00 Document Registration [id number] 09/14/2015 06:22:00 Document Registration [id number] 08/23/2015 09:20:00 Document Registration [id number] 08/22/2015 06:31:18 Document Registration [id number] 04/15/2018 13:45:24 Document Registration [id number] 04/15/2018 13:38:10 Document Registration [id number] 04/11/2018 10:26:45 Document Registration [id number] 03/29/2018 13:01:30 Document Registration [id number] 03/28/2018 11:42:21 Document Registration [id number] 03/21/2018 15:00:47 Document Registration [id number] 03/21/2018 10:45:31 Document Registration [id number] 03/18/2018 19:22:46 Document Registration [id number] 03/10/2018 19:14:12 Document Registration [id number] 02/21/2018 16:45:31 Document Registration [id number] 02/15/2018 09:34:18 Document Registration [id number] 12/09/2017 01:06:41 Document Registration [id number] 12/09/2017 01:00:23 Document Registration [id number] 12/04/2017 09:44:52 Document Registration [id number] 11/16/2017 09:53:45 Document Registration [id number] 11/16/2017 09:46:45 Document Registration [id number] 11/14/2017 08:22:08 Document Registration [id number] 10/07/2017 09:10:34 Document Registration [id number] 09/02/2017 08:10:11 Document Registration [id number] 08/12/2017 10:18:19 Document Registration [id number] 10/09/2017 06:06:00 Document Registration
[2018-04-17 03:56] LABS: INR 0.9 (0.8-1.4); PROTHROMBIN TIME PATIENT 12.3 SEC (12.2-14.7)
[2018-04-17] MEDS: ACETAMINOPHEN 500 MG TAB (TYLENOL) PO PRN ×2 (04:28→16:30)
[2018-04-17] MEDS ORDERED: ACETAMINOPHEN 500 MG TAB (TYLENOL) PO PRN (05:00)
[2018-04-17] MEDS ORDERED: ONDANSETRON 4 MG/2 ML (SDV) Z0FRAN IV PRN (05:00)
--- NOTE | 2018-04-17 07:26 | Diagnostic Imaging Report ---
EXAM: CT EMMA CHEST/NOANG ABD-PELV W TECHNIQUE: 3D reconstructions including MIPs of the angiographic images were performed and reviewed. INDICATION: Dizziness. Chest pain. Five days . COMPARISON: None. FINDINGS: CTA chest: There are a few both occlusive and nonocclusive pulmonary emboli in the lower lobes bilaterally. Normal caliber thoracic aorta without evidence of dissection. Normal heart size. No evidence of right heart strain. No pericardial effusion. Lungs are clear. No pleural effusion or pneumothorax. No mediastinal, hilar or axillary lymphadenopathy. No endobronchial lesions. CT abdomen and pelvis: Cholecystectomy. The liver, pancreas, spleen, adrenals, kidneys, collecting systems and unopacified bladder are negative. Enlarged uterus consistent with history. Appendectomy. Fat-containing umbilical and supraumbilical hernias . No free intraperitoneal air or fluid. No lymphadenopathy. No evidence of bowel obstruction. No acute osseous findings. IMPRESSION: 1. Both occlusive and nonocclusive pulmonary emboli in the lower lobes bilaterally. No evidence of right heart strain. 2. Enlarged uterus consistent with recent history. No acute CT findings in the abdomen or pelvis. Urgent findings were communicated to Dr. Kwok by the preliminary interpreting radiologist at 3:21 AM on 04/17/2018. Dictated by: Dictated on workstation # [id number]
--- NOTE | 2018-04-17 07:40 | Pulmonary Consultation ---
History of Present Illness History of Present Illness Date of Consultation 04/17/18 07:34 Date of Admission Allergies and Home Medications Allergies Coded Allergies: codeine (Verified Allergy, Mild, ITCHING, 04/16/18) Past Wkitayw-Upiock-Wlluhj Hx Patient Social History Alcohol Use: Denies Use Recreational Drug Use: No Smoking Status: Smoker Current Status [facility] Recent Foreign Travel: No Contact w/Someone Who Travel: No Recent Infectious Disease Expo: No Recent Hopitalizations: Yes (DELIVERY 04/12/18) Immunizations Up To Date Tetanus Booster (TDap): Unknown PED Vaccines UTD: Yes Seasonal Allergies Seasonal Allergies: Yes Past Medical History Surgeries: Yes (lt hand gangallion cyst) Appendectomy, Gallbladder, Orthopedic (ganglion cyst removed from the left hand , left ankle reconstruction) Respiratory: Yes Asthma Currently Using CPAP: No Currently Using BIPAP: No Cardiac: No Neurological: No : No Reproductive Disorders: No Genitourinary: No Gastrointestinal: No Musculoskeletal: No Endocrine: No HEENT: No Cancer: No Psychosocial: No Integumentary: No Blood Disorders: No Adverse Reaction/Blood Tranf: No Sepsis Event Evaluation Height, Weight, BMI Height: 5'3.00" Weight: 295lbs. 0.0oz. 133.640044eg; 52.3 BMI Method:Stated Exam Exam Vital Signs Date Time Temp Pulse Resp B/P (MAP) Pulse Ox O2 Delivery O2 Flow Rate FiO2 04/17/18 06:30 90 142/82 (102) Room Air 04/17/18 06:00 98 131/61 (84) Room Air 04/17/18 05:30 93 143/76 (98) Room Air 04/17/18 05:00 92 135/90 (105) Room Air 04/17/18 04:30 99 Room Air 04/17/18 04:30 93 139/69 (92) 100 Room Air 04/17/18 04:16 91 04/17/18 04:14 98.0 89 18 139/74 (95) 99 Room Air 04/17/18 04:05 98 20 147/73 99 Room Air 04/17/18 00:58 Room Air 04/16/18 22:30 98.9 99 20 138/102 (114) 99 Room Air I & O 04/17/18 07:00 Intake Total 1000 ml Balance 1000 ml Height & Weight Height: 5'3.00" Weight: 295lbs. 0.0oz. 133.103303uy; 52.3 BMI Method:Stated General Appearance: No Apparent Distress, WD/WN, Obese HEENT: PERRL/EOMI, Normal ENT Inspection Neck: Normal Inspection Respiratory: Lungs Clear, Normal Breath Sounds, No Accessory Muscle Use, No Respiratory Distress Cardiovascular: Regular Rate, Rhythm (borderline tachycardia), No Edema, No Murmur Capillary Refill: Less Than 3 Seconds Extremity: Non Tender, No Calf Tenderness, Swelling (subtle edema of the ankles and feet bilaterally, right greater than left), Other (negative Rebeka) Neurologic/Psychiatric: Alert, Oriented x3, No Motor/Sensory Deficits, Normal Mood/Affect, 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
--- NOTE | 2018-04-17 08:52 | Pulmonary Consultation ---
History of Present Illness History of Present Illness Date of Consultation 04/17/18 08:46 Time Seen by Provider: 08:46 Date of Admission History of Present Illness 32yo WF post 04/12 at [facility] presented to ED secondary to dizziness, lightheadedness, and was found to have acute PE in the ED. She was at [facility]'s ED 04/15 and was diagnosed with anemia and was transfused 4 units total of PRBC. PT is currently on a heparin gtt. Allergies and Home Medications Allergies Coded Allergies: codeine (Verified Allergy, Mild, ITCHING, 04/16/18) Home Medications Acetaminophen 500 Mg Tablet, 1,000 MG PO Q6H PRN for HEADACHE, (Reported) TAKE 2 (500 MG) TABLETS EVERY 6 HOURS NEEDED FOR HEADACHES Apixaban 5 Mg Tablet, 5 MG PO BID Prescribed by: NATHAN NEW on 04/18/18 1105 Ferrous Sulfate 325 Mg Tablet, 325 MG PO EVERY OTHER DAY, (Reported) Hydrocodone/Acetaminophen 1 Each Tablet, 1 EACH PO Q12H PRN for HEADACHE, ( Reported) Ibuprofen 800 Mg Tablet, 800 MG PO Q8H PRN for PAIN, (Reported) Metronidazole 500 Mg Tablet, 500 MG PO BID Prescribed by: ROXANNE HERNANDES on 04/18/18 1218 Past Ftomlcl-Gsskrc-Rwbags Hx Patient Social History Alcohol Use: Denies Use Recreational Drug Use: No Smoking Status: Former Smoker Type Used: Cigarettes Former Smoker, Quit: Mar 15, 2007 Recent Foreign Travel: No Contact w/Someone Who Travel: No Recent Infectious Disease Expo: No Recent Hopitalizations: Yes (DELIVERY 04/12/18) Immunizations Up To Date Tetanus Booster (TDap): Unknown PED Vaccines UTD: Yes Seasonal Allergies Seasonal Allergies: Yes Past Medical History Surgeries: Yes (lt hand gangallion cyst) Appendectomy, Gallbladder, Orthopedic (ganglion cyst removed from the left hand , left ankle reconstruction) Respiratory: Yes Asthma Currently Using CPAP: No Currently Using BIPAP: No Cardiac: No Neurological: No : No Reproductive Disorders: No Genitourinary: No Gastrointestinal: No Musculoskeletal: No Endocrine: No HEENT: No Cancer: No Psychosocial: No Integumentary: No Blood Disorders: No Adverse Reaction/Blood Tranf: No Review of Systems Time Seen by Provider: 09:29 Constitutional: Weakness, Malaise; No: Fever, Chills, Sweats, Other Eyes: No: Pain, Vision change, Conjunctivae inflammation, Eyelid inflammation, Other, Redness ENT: No: Ear pain, Ear discharge, Nose pain, Nose discharge, Nose congestion, Mouth pain, Mouth swelling, Throat pain, Throat swelling, Other Respiratory: Cough, Dry, Shortness of breath, SOB with excertion; No: Wheezing , Hemoptysis Cardiovascular: Chest Pain, Palpitations, Paroxysmal Noc. Dyspnea, Edema, Lt Headedness Sepsis Event Evaluation Height, Weight, BMI Height: 5'3.00" Weight: 295lbs. 0.0oz. 133.102211ds; 52.3 BMI Method:Stated Exam Exam Vital Signs Date Time Temp Pulse Resp B/P (MAP) Pulse Ox O2 Delivery O2 Flow Rate FiO2 04/17/18 07:00 84 04/17/18 06:30 90 142/82 (102) Room Air 04/17/18 06:00 98 131/61 (84) Room Air 04/17/18 05:30 93 143/76 (98) Room Air 04/17/18 05:00 92 135/90 (105) Room Air 04/17/18 04:30 99 Room Air 04/17/18 04:30 93 139/69 (92) 100 Room Air 04/17/18 04:16 91 04/17/18 04:14 98.0 89 18 139/74 (95) 99 Room Air 04/17/18 04:05 98 20 147/73 99 Room Air 04/17/18 00:58 Room Air 04/16/18 22:30 98.9 99 20 138/102 (114) 99 Room Air I & O 04/17/18 07:00 Intake Total 1100 ml Output Total 0 ml Balance 1100 ml Height & Weight Height: 5'3.00" Weight: 295lbs. 0.0oz. 133.501460sw; 52.3 BMI Method:Stated General Appearance: No Apparent Distress, WD/WN, Obese HEENT: PERRL/EOMI, Normal ENT Inspection Neck: Normal Inspection Respiratory: Lungs Clear, Normal Breath Sounds, No Accessory Muscle Use, No Respiratory Distress Cardiovascular: Regular Rate, Rhythm (borderline tachycardia), No Edema, No Murmur Capillary Refill: Less Than 3 Seconds Extremity: Non Tender, No Calf Tenderness, Swelling (subtle edema of the ankles and feet bilaterally, right greater than left), Other (negative Rebeka) Neurologic/Psychiatric: Alert, Oriented x3, No Motor/Sensory Deficits, Normal Mood/Affect, membership correspondent II-XII Norm as Tested Skin: Normal Color, Warm/Dry Results Lab Laboratory Tests 04/16/18 22:39 Assessment/Plan Assessment/Plan Acute post PE -Continue Heparin for now if no bleeding will start PO tomorrow anticoagulation tomorrow -PT will need at least 6 mo of anticoagulation -Check echocardiogram Anemia with recent hx of 4 unit transfusion -Monitor -repeat labs Obesity ALEX ARIAS DO Apr 17, 2018 08:51
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
[2018-04-17 09:42] LABS: BASOPHILS % (AUTO) 0 % (0-10); EOSINOPHILS # (AUTO) 0.1 10^3/uL (0.0-0.3); EOSINOPHILS % (AUTO) 1 % (0-10); HEMATOCRIT 25 % (35-52); HEMOGLOBIN 8.2 G/DL (11.5-16.0); LYMPHOCYTES # (AUTO) 1.7 X 10^3 (1.0-4.0); LYMPHOCYTES % (AUTO) 27 % (12-44); MEAN CORPUSCULAR HEMOGLOBIN 29 PG (25-34); MEAN CORPUSCULAR HGB CONC 32 G/DL (32-36); MEAN CORPUSCULAR VOLUME 90 FL (80-99); MEAN PLATELET VOLUME 8.9 FL (7.4-10.4); MONOCYTES # (AUTO) 0.3 X 10^3 (0.0-1.0); MONOCYTES % (AUTO) 5 % (0-12); NEUTROPHILS # (AUTO) 4.2 X 10^3 (1.8-7.8); NEUTROPHILS % (AUTO) 67 % (42-75); PLATELET COUNT 250 10^3/uL (130-400); RED BLOOD COUNT 2.81 10^6/uL (4.35-5.85); RED CELL DISTRIBUTION WIDTH 15.8 % (10.0-14.5); WHITE BLOOD COUNT 6.4 10^3/uL (4.3-11.0)
[2018-04-17] MEDS ORDERED: ACET-2267 PO (10:08)
[2018-04-17] MEDS ORDERED: HYDR-3812 PO (10:08)
[2018-04-17] MEDS ORDERED: FERR325T18 PO (10:08)
[2018-04-17] MEDS ORDERED: IBUP-1780 PO (10:08)
[2018-04-17 10:10] LABS: ALANINE AMINOTRANSFERASE 15 U/L (0-55); ALBUMIN 2.7 GM/DL (3.2-4.5); ALKALINE PHOSPHATASE 78 U/L (40-136); BILIRUBIN,TOTAL 0.3 MG/DL (0.1-1.0); BUN/CREATININE RATIO 8; CALCIUM 8.1 MG/DL (8.5-10.1); CARBON DIOXIDE 24 MMOL/L (21-32); CHLORIDE 111 MMOL/L (98-107); CREATININE SERUM 0.66 MG/DL (0.60-1.30); GFR ESTIMATED > 60; GLUCOSE 90 MG/DL (70-105); MAGNESIUM 1.8 MG/DL (1.8-2.4); PHOSPHORUS 4.7 MG/DL (2.3-4.7); POTASSIUM 3.6 MMOL/L (3.6-5.0); SODIUM 142 MMOL/L (135-145); TOTAL PROTEIN 5.4 GM/DL (6.4-8.2)
--- NOTE | 2018-04-17 11:02 | Diagnostic Imaging Report ---
PROCEDURE: US right lower extremity venous. TECHNIQUE: Multiple real-time grayscale images were obtained over the right lower extremity in various projections. Additional duplex Doppler and color Doppler images were also obtained. INDICATION: Right lower extremity swelling and pain. COMPARISON: None. FINDINGS: Visualized deep and superficial venous system is patent. There is no mass or DVT. IMPRESSION: Negative right lower extremity venous Doppler. Dictated by: Dictated on workstation # [id number]
[2018-04-18] VITALS: BP 125/61
[2018-04-18 03:18] LABS: BASOPHILS % (AUTO) 0 % (0-10); EOSINOPHILS # (AUTO) 0.1 10^3/uL (0.0-0.3); EOSINOPHILS % (AUTO) 1 % (0-10); HEMATOCRIT 26 % (35-52); HEMOGLOBIN 8.5 G/DL (11.5-16.0); LYMPHOCYTES # (AUTO) 2.5 X 10^3 (1.0-4.0); LYMPHOCYTES % (AUTO) 29 % (12-44); MEAN CORPUSCULAR HEMOGLOBIN 30 PG (25-34); MEAN CORPUSCULAR HGB CONC 33 G/DL (32-36); MEAN CORPUSCULAR VOLUME 90 FL (80-99); MEAN PLATELET VOLUME 9.3 FL (7.4-10.4); MONOCYTES # (AUTO) 0.5 X 10^3 (0.0-1.0); MONOCYTES % (AUTO) 5 % (0-12); NEUTROPHILS # (AUTO) 5.5 X 10^3 (1.8-7.8); NEUTROPHILS % (AUTO) 64 % (42-75); PLATELET COUNT 269 10^3/uL (130-400); RED BLOOD COUNT 2.88 10^6/uL (4.35-5.85); RED CELL DISTRIBUTION WIDTH 15.8 % (10.0-14.5); WHITE BLOOD COUNT 8.5 10^3/uL (4.3-11.0)
[2018-04-18 03:39] LABS: BUN/CREATININE RATIO 12; CALCIUM 8.2 MG/DL (8.5-10.1); CARBON DIOXIDE 20 MMOL/L (21-32); CHLORIDE 108 MMOL/L (98-107); CREATININE SERUM 0.74 MG/DL (0.60-1.30); GFR ESTIMATED > 60; GLUCOSE 94 MG/DL (70-105); MAGNESIUM 1.9 MG/DL (1.8-2.4); POTASSIUM 3.8 MMOL/L (3.6-5.0); SODIUM 138 MMOL/L (135-145)
[2018-04-18 04:00] VITALS: BP 140/70
[2018-04-18] MEDS: HEParin 1000 UNIT/ML (10ML VIAL) FOR BOLUS IV SCH (04:09)
[2018-04-18] MEDS: HEParin DRIP 25000 UNIT/500ML 500 ML IV SCH (05:21)
--- NOTE | 2018-04-18 07:09 | Pulmonary Progress Note ---
Subjective Time Seen by Provider: 07:06 Subjective/Events-last exam No complications noted. Sepsis Event Evaluation Height, Weight, BMI Height: 5'3.00" Weight: 290lbs. 1.0oz. 131.458677xo; 52.3 BMI Method:Stated Exam Exam Vital Signs Date Time Temp Pulse Resp B/P (MAP) Pulse Ox O2 Delivery O2 Flow Rate FiO2 04/18/18 04:00 97.6 83 18 140/70 (93) 96 Room Air 04/18/18 01:00 83 04/18/18 00:00 97.9 80 18 125/61 (82) 93 Room Air 04/17/18 21:00 Room Air 04/17/18 19:06 98.0 80 18 139/72 (94) 98 Room Air 04/17/18 19:00 79 04/17/18 16:02 98.6 79 18 141/82 (101) 98 Room Air 04/17/18 13:00 79 04/17/18 12:20 96.6 85 16 137/84 (101) 97 Room Air 04/17/18 12:15 Room Air 04/17/18 12:00 Room Air 04/17/18 08:30 Room Air 04/17/18 08:05 98.6 04/17/18 08:00 92 16 124/76 (92) 98 Room Air 04/17/18 07:30 84 18 115/66 (82) 96 Room Air I & O 04/18/18 07:00 Intake Total 2184 ml Output Total 1600 ml Balance 584 ml Height & Weight Height: 5'3.00" Weight: 290lbs. 1.0oz. 131.484575ur; 52.3 BMI Method:Stated General Appearance: No Apparent Distress, WD/WN HEENT: PERRL/EOMI, Moist Mucous Membranes Neck: Non Tender, Supple Respiratory: Lungs Clear, No Respiratory Distress Cardiovascular: Regular Rate, Rhythm, No Murmur Capillary Refill: Less Than 3 Seconds Extremity: Normal Capillary Refill, No Calf Tenderness Neurologic/Psychiatric: Alert, Oriented x3, Normal Mood/Affect Skin: Normal Color, Warm/Dry Results Lab Laboratory Tests 04/16/18 22:39 04/17/18 09:34 04/18/18 03:06 Assessment/Plan Assessment/Plan Acute post PE -Change to PO anticoagulation today. Pt is not planning on breast feeding. She has [employer] so Po selection will be limited. -PT will need at least 6 mo of anticoagulation - echocardiogram - reviewed -Will repeat after 3-6mo on anticoagulation Anemia with recent hx of 4 unit transfusion -Monitor -repeat labs Obesity Once PO anticoagulation is established given insurance and affordability pt is ok for discharge from my standpoint. I will have her f/u with me in 2-3 wks. ALEX ARIAS DO Apr 18, 2018 07:09
[2018-04-18 07:48] VITALS: BP 135/73
--- NOTE | 2018-04-18 11:01 | Progress Note-Hospitalist ---
Progress Note Progress Notes/Assess & Plan Date Seen 04/18/18 Time Seen by Provider: 10:55 Assessment & Plan Her second child days before presentation to our emergency room. She reports that on her first delivery 2 years ago she dropped into the 6 g hemoglobin range but was not transfused. This time she apparently had a uterine clot that was manually evacuated by her provider. She had difficulties with dizziness on standing after her discharge and had 2 separate transfusions for a total of 4 units. At that time she had decided to come to [facility] in affect a second opinion. She also noted shortness of breath particularly walking very short distances. CT pulmonary angiogram suggested bilateral lower lobe emboli. She was placed on a heparin drip. She had no intention of breast-feeding which will make the choice of oral medication easier. She has satisfactory SaO2 's at this time on room air. Dr. Verdugo is to see her today. Plans are being made for her oral anticoagulants. Physical exam: The patient is alert and oriented. She is sitting crosslegged in her bed at the time of exam. She speaks in full sentences. Lungs are clear to auscultation. CV is regular without murmur. Extremities reveal the calves to be equal and without redness warmth or tenderness. Impression: acute anemia. 2. acute pulmonary emboli. Plan: Initiate oral anticoagulants and discharge. NATHAN NEW MD Apr 18, 2018 11:01
[2018-04-18] MEDS ORDERED: APIX5TAB PO (11:05)
--- NOTE | 2018-04-18 11:11 | Discharge Instructions ---
Discharge Instructions Patient Instructions Patient Instructions: If you plan to arrange a new provider this must be done promptly. You will need someone to follow your case relative to your pulmonary embolus. It is expected that you will need to take a blood thinner for a period of about 6 months. Return to The Hospital For: Excessive bleeding or recurrent shortness of breath Activity & Diet Discharge Diet: No Restrictions Activity as Tolerated: Yes NATHAN NEW MD Apr 18, 2018 11:11
[2018-04-18] MEDS ORDERED: APIXABAN 5 MG (ELIQUIS) TABLET PO NR (11:30)
[2018-04-18 12:00] VITALS: BP 136/76
[2018-04-18] MEDS ORDERED: METR500T PO (12:18)
--- NOTE | 2018-04-18 12:20 | Discharge Instructions ---
Discharge Instructions Orders-Post D/C & Referrals Follow Up Appt: Call to make follow up appt. for patient with me in 6 weeks. ROXANNE CHAMBERLAIN MD Apr 18, 2018 12:19 pm
[2018-04-18 16:00] VITALS: BP 145/71
--- OUTSIDE RECORDS SUMMARY | 2018-04-22 11:28 | XMS REPORT | Continuity of Care Document ---
Author Author [facility] Organization [facility] Address Unknown Phone Unavailable Allergies Active Description Code Type Severity Reaction Onset Reported/Identified Relationship to Patient Clinical Status Yes ASPIRIN 1191 Drug Allergy N/A N/A Yes CODEINE Drug Allergy N/A N/A Yes PAPER TAPE 1"X10YD [id number] Drug Allergy N/A N/A Yes NKDA N/A N/A Yes CODEINE 09176408 DRUG N/A ITCHING Yes CODEINE 15033799 DRUG N/A N/A Yes No known allergies Drug N/A N/A Medications Medication Packaging Start Date Stop Date Route Dosage Sig NAPROSYN ORAL 10/04/2013 04/15/2015 ORAL 6060 twice daily LATUDA ORAL 10/04/2013 04/15/2015 ORAL 3030 DAILY GABAPENTIN ORAL 10/04/2013 04/15/2015 ORAL 9090 three times daily DIFLUCAN ORAL 10/03/2015 10/04/2015 ORAL 11 NOW Problems Date Dx Coded Attending Type Code Diagnosis Diagnosed By 11/14/2017 P L99205 Obesity complicating , second trimester 11/14/2017 S Z369 Encounter for screening, unspecified 11/18/2017 S E669 Obesity, unspecified 11/18/2017 P Z27209 Gestational diabetes mellitus in , unspecified control [...] Status Pt. Type Provider Facility Loc./Unit Complaint [id number] 03/28/2018 12:00:52 03/28/2018 23:59:59 CLS Outpatient Mya Moore [id number] 03/21/2018 10:37:34 03/21/2018 23:59:59 CLS Outpatient Loreto Mooreanne [id number] 03/15/2018 09:40:52 03/15/2018 23:59:59 CLS Outpatient OscarLoreto kamaraanne [id number] 03/01/2018 09:55:15 03/01/2018 23:59:59 CLS Out[place] [facility] [id number] 02/15/2018 09:40:36 02/15/2018 23:59:59 CLS Outpatient [place] [facility] [id number] 02/01/2018 09:52:13 02/01/2018 23:59:59 [place] [id number] 01/04/2018 09:52:54 01/04/2018 23:59:59 CLS Outpatient [place] [facility] [id number] 12/29/2017 14:04:48 12/29/2017 23:59:59 CLS Outpatient [place] [facility] [id number] 12/14/2017 11:09:31 12/14/2017 23:59:59 CLS Outpatient [place] [facility] [id number] 12/10/2017 10:58:48 12/10/2017 23:59:59 CLS Outpatient Juan Lyons [id number] 11/30/2017 10:42:11 11/30/2017 23:59:59 CLS Outpatient [place] [facility] [id number] 11/16/2017 10:30:56 11/16/2017 23:59:59 CLS Outpatient [place] [facility] [id number] 10/08/2017 09:48:40 10/08/2017 23:59:59 CLS Outpatient [place] [facility] [id number] 09/17/2017 18:23:34 09/17/2017 23:59:59 CLS Outpatient Ava Sahu [id number] 09/01/2017 16:55:57 09/01/2017 23:59:59 CLS Outpatient [place] brownanne [id number] 08/18/2017 14:54:15 08/18/2017 23:59:59 CLS Outpatient Miri Cleemns [id number] 08/10/2017 14:30:42 08/10/2017 23:59:59 CLS Outpatient Het[place]Mahendra [id number] 05/17/2017 14:32:10 05/17/2017 23:59:59 CLS Outpatient [place]hen[place] [id number] 02/25/2017 16:38:13 02/25/2017 23:59:59 CLS Outpatient Mahendra Read [id number] 02/22/2017 18:50:37 02/22/2017 23:59:59 CLS Outpatient Cristino Leslie [id number] 02/09/2017 10:22:38 02/09/2017 23:59:59 CLS Outpatient Andria Rodriguez [id number] 01/26/2017 16:15:19 01/26/2017 23:59:59 CLS Outpatient Alen Benitez [id number] 01/18/2017 17:36:35 01/18/2017 23:59:59 CLS Outpatient Alen Benitez [id number] 12/29/2016 16:32:26 12/29/2016 23:59:59 CLS Outpatient Mahendra Read [id number] 12/17/2016 16:37:23 12/17/2016 23:59:59 CLS Outpatient Alen Benitez [id number] 12/14/2016 16:31:42 12/14/2016 23:59:59 CLS Outpatient Mahendra Read [id number] 11/25/2016 12:26:37 11/25/2016 23:59:59 CLS Outpatient Andria Rodriguez [id number] 11/12/2016 16:19:17 11/12/2016 23:59:59 CLS Outpatient Mahendra Read [id number] 11/03/2016 17:50:25 11/03/2016 23:59:59 CLS Outpatient Roby Wagoner [id number] 09/18/2016 10:55:51 09/18/2016 23:59:59 CLS Outpatient Mahendra Read [id number] 08/17/2016 18:07:01 08/17/2016 23:59:59 CLS Outpatient Cristino Leslie [id number] 07/02/2016 09:56:59 07/02/2016 23:59:59 CLS Outpatient Mahendra Read [id number] 06/04/2016 16:30:05 06/04/2016 23:59:59 CLS Outpatient [place] Mahendra [id number] 04/29/2016 11:26:59 04/29/2016 23:59:59 CLS Outpatient Mahendra Read [id number] 04/06/2016 09:06:19 04/06/2016 23:59:59 CLS Outpatient Mahendra Read [id number] 03/21/2016 12:10:59 03/21/2016 23:59:59 CLS Outpatient Fred Maldonado [id number] 03/16/2016 15:57:55 03/16/2016 23:59:59 CLS Outpatient Cristino Leslie [id number] 11/29/2015 09:40:16 11/29/2015 23:59:59 CLS Outpatient Mahendra Read [id number] 11/25/2015 15:36:09 11/25/2015 23:59:59 CLS Outpatient Mya Moore [id number] 11/20/2015 15:43:53 11/20/2015 23:59:59 CLS Outpatient Evgeny Lund [id number] 11/18/2015 11:55:19 11/18/2015 23:59:59 CLS Outpatient Loreto Mooreanne [id number] 11/13/2015 15:12:38 11/13/2015 23:59:59 CLS Outpatient Mya Moore [id number] 10/31/2015 10:49:10 10/31/2015 23:59:59 CLS Outpatient Mya Moore [id number] 10/23/2015 11:50:56 10/23/2015 23:59:59 CLS Outpatient Mya Moore [id number] 10/22/2015 10:39:01 10/22/2015 23:59:59 CLS Outpatient Andria Rodriguez [id number] 07/09/2015 16:07:09 07/09/2015 23:59:59 CLS Outpatient Loreto Mooreanne [id number] 07/01/2015 16:12:36 07/01/2015 23:59:59 CLS Outpatient Loreto Mooreanne [id number] 06/05/2015 14:12:57 06/05/2015 23:59:59 CLS Outpatient Jameson Lockett [id number] 05/21/2015 18:32:55 05/21/2015 23:59:59 CLS Outpatient Genna Costa [id number] 05/07/2015 10:37:14 05/07/2015 23:59:59 CLS Outpatient Jameson Lockett [place] [id number] 04/22/2015 14:49:53 04/22/2015 23:59:59 CLS Outpatient Genna Costa [id number] 09/12/2013 17:30:06 Document Registration [id number] 10/08/2017 12:07:00 Document Registration [id number] 04/18/2018 11:08:00 Document Registration [id number] 08/28/2017 11:41:07 08/28/2017 11:41:07 DIS Outpatient [facility] [id number] 04/01/2017 11:03:03 04/01/2017 23:59:59 DIS Outpatient Coby Graves [facility] beta [id number] 04/01/2017 10:41:42 04/01/2017 23:59:59 DIS Outpatient Coby Graves [facility] [id number] 03/30/2017 11:22:12 03/30/2017 23:59:59 DIS Outpatient RENEA MUNROE [facility] vaginal bleeding [id number] 03/30/2017 11:09:49 03/30/2017 23:59:59 DIS Outpatient Coby Graves [facility] [id number] 03/29/2017 09:37:37 03/29/2017 23:59:59 CLS Outpatient [facility] [id number] 10/08/2017 07:06:00 Document Registration [id number] 09/25/2015 09:37:00 Document Registration [id number] 09/14/2015 06:22:00 Document Registration [id number] 08/23/2015 09:20:00 Document Registration [id number] 08/22/2015 06:31:18 Document Registration [id number] 04/18/2018 14:55:49 Document Registration [id number] 04/15/2018 13:45:24 Document Registration [id number] 04/15/2018 13:38:10 Document Registration [id number] 04/11/2018 10:26:45 Document Registration [id number] 03/29/2018 13:01:30 Document Registration [id number] 03/28/2018 11:42:21 Document Registration [id number] 03/21/2018 15:00:47 Document Registration [id number] 03/21/2018 10:45:31 Document Registration [id number] 03/18/2018 19:22:46 Document Registration [id number] 03/10/2018 19:14:12 Document Registration [id number] 02/21/2018 16:45:31 Document Registration [id number] 02/15/2018 09:34:18 Document Registration [id number] 12/09/2017 01:06:41 Document Registration [id number] 12/09/2017 01:00:23 Document Registration [id number] 12/04/2017 09:44:52 Document Registration [id number] 11/16/2017 09:53:45 Document Registration [id number] 11/16/2017 09:46:45 Document Registration [id number] 11/14/2017 08:22:08 Document Registration [id number] 10/07/2017 09:10:34 Document Registration [id number] 09/02/2017 08:10:11 Document Registration [id number] 08/12/2017 10:18:19 Document Registration [id number] 10/09/2017 06:06:00 Document Registration
== END 2018-04-18 18:20 | disposition home or self-care (01) | DRG 776 ==
LOC: ER 21:56 → ICU 22:52 → UNDOADMOB 04-17 03:15 → OBSVTOIN 04-17 12:45 → INTOOBSV 04-17 12:45 → 4TH 04-17 12:46 → ICU 04-17 12:46 → UNDODISIN 04-18 18:20
PROVIDERS: ADMIT Family Medicine; ATTEND Family Medicine
DX: O88.23 Thromboembolism in the puerperium (principal); O86.13 Vaginitis following delivery; N81.10 Cystocele, unspecified; N81.6 Rectocele; O90.81 Anemia of the puerperium; Z87.891 Personal history of nicotine dependence; O99.53 Diseases of the respiratory system complicating the puerperium; J45.909 Unspecified asthma, uncomplicated; Z80.41 Family history of malignant neoplasm of ovary; Z80.49 Family history of malignant neoplasm of other genital organs
CPT/HCPCS: 36415; 71275; 74177; 80048; 80053; 83735; 83880; 84100; 84484; 85025; 85379; 85610; 85730; 86850; 86900; 86901; 87210; 93005; 93306; 94640; 96361; 96365

== ENCOUNTER → 2018-06-20 | Outpatient (CLI) | payer MEDICAID ==
[~2018-06-20] MED LIST: ACET-2267 PO; APIX5TAB PO; FERR-84; FERR325T18 PO; HYDR-3812; HYDR-3812 PO; IBUP-1780; IBUP-1780 PO; METR500T PO; RT-ALBUTEROL SULF 2.5 MG/3 ML PRE-MIX VIAL INH ONE
== END ==
LOC: RT 13:40
PROVIDERS: ATTEND Nurse Practitioner Family
DX: J45.909 Unspecified asthma, uncomplicated (principal); R06.00 Dyspnea, unspecified; I26.99 Other pulmonary embolism without acute cor pulmonale; D64.9 Anemia, unspecified
CPT/HCPCS: 94060; 94726; 94729

== ENCOUNTER 2019-06-05 12:46 | Outpatient (CLI) | payer MEDICAID ==
[~2019-06-05] VITALS: Ht 162 cm; Wt 132.2 kg
[~2019-06-05 12:46] MED LIST changes: -RT-ALBUTEROL SULF 2.5 MG/3 ML PRE-MIX VIAL INH ONE
[2019-06-05] MEDS ORDERED: OXYC15TA79 PO (12:55)
[2019-06-05 13:01] VITALS: BP 132/77
[2019-06-05 14:04] LABS: BASOPHILS % (AUTO) 0 % (0-10); EOSINOPHILS # (AUTO) 0.1 10^3/uL (0.0-0.3); EOSINOPHILS % (AUTO) 1 % (0-10); HEMATOCRIT 41 % (35-52); HEMOGLOBIN 13.1 G/DL (11.5-16.0); LYMPHOCYTES # (AUTO) 1.8 X 10^3 (1.0-4.0); LYMPHOCYTES % (AUTO) 23 % (12-44); MEAN CORPUSCULAR HEMOGLOBIN 28 PG (25-34); MEAN CORPUSCULAR HGB CONC 32 G/DL (32-36); MEAN CORPUSCULAR VOLUME 87 FL (80-99); MEAN PLATELET VOLUME 9.9 FL (7.4-10.4); MONOCYTES # (AUTO) 0.6 X 10^3 (0.0-1.0); MONOCYTES % (AUTO) 7 % (0-12); NEUTROPHILS # (AUTO) 5.4 X 10^3 (1.8-7.8); NEUTROPHILS % (AUTO) 69 % (42-75); PLATELET COUNT 320 10^3/uL (130-400); RED CELL DISTRIBUTION WIDTH 15.7 % (10.0-14.5); WHITE BLOOD COUNT 7.8 10^3/uL (4.3-11.0)
[2019-06-06] MEDS ORDERED: OXYC1TAB87 PO (17:15)
[2019-06-06] MEDS ORDERED: IBUP-1780 PO (17:15)
[2019-06-06] MEDS ORDERED: DOCU-143 PO (17:15)
--- NOTE | 2019-06-06 17:16 | Discharge Instructions ---
Discharge Instructions Discharge Medications New, Converted or Re-Newed RX: RX on Chart Patient Instructions Return to The Hospital For: As directed Activity & Diet Discharge Diet: No Restrictions Activity as Tolerated: No Orders-Post D/C & Referrals Follow Up Appt: Return to clinic on Sunday, June 09, 2019 at 930 a.m. for staple removal Call to make follow up appt. for patient in 4 weeks. Activity: Rest for 24 hours, than as tolerated. Wound Care: May remove Band-Aid tomorrow. Replace as desired. Keep incisions clean and dry. Wash daily with soap and water. Please call in RX to patient pharmacy. Diet: As tolerated-Clear Liquids only if nauseated. shower or tub bathe as desired. No driving for 24 hours, no alcoholic beverages for 24 hours, and nothing per vagina (no tampons, douching, or intercourse) for 8 weeks. Patient to return to the clinic as soon as possible for: Temperature greater than 101F, Severe Pain, Foul discharge from incision or vagina, Excessive Bleeding (more than a period). ROXANNE CHAMBERLAIN MD Jun 06, 2019 17:16
[2019-06-07] MEDS ORDERED: DOCU-143 PO (12:29)
[2019-06-07] MEDS ORDERED: IBUP-1780 PO (12:29)
[2019-06-07] MEDS ORDERED: OXYC1TAB87 PO (12:29)
[2019-06-08] MEDS ORDERED: OXYC1TAB87 PO (07:50)
[2019-06-08] MEDS ORDERED: ESTR1TAB24 PO (07:50)
== END 2019-06-05 15:30 | disposition home or self-care (01) ==
LOC: PREOP 12:46
PROVIDERS: ATTEND Obstetrics & Gynecology
DX: Z01.818 Encounter for other preprocedural examination (principal); G89.29 Other chronic pain; N93.8 Other specified abnormal uterine and vaginal bleeding; R10.2 Pelvic and perineal pain
CPT/HCPCS: 36415; 85025; 86850; 86900; 86901; 87081